=== PATIENT | male | born 1950 | race Caucasian/White ===

== ENCOUNTER 2016-04-28 17:09 | Emergency (ER) | payer MEDICARE, BC ==
--- OUTSIDE RECORDS SUMMARY | 2016-04-28 19:23 | XMS REPORT | Continuity of Care Document ---
:1950 Author Organization [facility] ([facility]) Address [address] [place] [address] Phone [phone] Care Team Providers Name Role Phone Honey Hoang Primary Care Provider [phone] Source Comments This disclosure is being made pursuant to the Care Everywhere program, applicable federal and state laws, and may not contain all informaitonavailable regarding this patient.[facility] ([facility]) Active Allergies and Adverse Reactions Allergen Noted Date Severity Reactions Comments Indomethacin Fatigue Penicillins Urticaria (Hives) Current Medications Prescription Sig. Disp. Refills Start Date End Date Status calcium carbonate take 1 Tab by mouth 90 Tab 5 06/08/2009 Active 650 mg (1,625 mg) 2 times daily with tablet meals. Indications: Osteoporosis Cholecalciferol, take 1 Cap by mouth 90 Cap 3 06/08/2009 Active Vitamin D3, 1,000 daily. Indications: unit Cap Osteoporosis ASCORBATE CALCIUM Take by mouth. Active (VITAMIN C PO) VITAMIN E ACETATE Take by mouth. Active (VITAMIN E PO) Ferrous Sulfate Take 1 Tab by mouth Active (IRON) 27 mg iron daily. Tab Multivitamin,Tx-Iron Take 1 Tab by mouth Active -Minerals (COMPLETE daily. MULTIVITAMIN) Tab metoPROLol tartrate Take 25 mg by mouth Active 25 mg tablet 2 times daily. TRIAMCINOLONE 0.1 % 11/20/2013 Active cream folic acid 1 mg Take 1 tablet (1 mg 100 tablet 4 02/10/2015 Active tablet total) by mouth daily alendronate 70 mg Take 1 tablet (70 12 tablet 4 04/14/2015 Active tablet mg total) by mouth every week. omega-3 fatty Take 1,000 mg by Active acids-vitamin E mouth daily. 1,000 mg capsule methotrexate 2.5 mg Take 8 tablets (20 96 tablet 1 03/03/2016 Active tablet mg total) by mouth every week. Active Problems Problem Noted Date Paroxysmal supraventricular tachycardia 06/24/2013 Encounter for long-term (current) use of other high-risk medications 2009 Osteoporosis 12/07/2008 Overview: DEXA 05/18 - L spine T score: -3.5. 25 [place] vitamin D=37. DEXA 12/20 - L spine T score -3.0 Irritable bowel syndrome 12/07/2008 History of appendectomy 12/07/2008 Mandibular fracture 12/07/2008 Overview: right mandibular fracture for malalignment and dental issues. Peyronie disease 12/07/2008 Overview: And ED Elevated prostate specific antigen (PSA) 12/07/2008 Overview: History of slightly elevated PSA of 4.75. prostate biopsy negative in 2004. Positive JUANCARLOS 12/07/2008 Overview: Transiently positive JUANCARLOS (1:640 homogenous pattern) outside lab 12/14. Repeat testing negative here 02/13. Negative SSA,B. 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 Skin plaques first developed in 1996. He has been treated by a director financial systems with topical steroid preparations and weekly tanning. Arthritis developed fall 2004. On MTX since 02/13. Dose decreased from 20mg orally per week to 17.5mg per week in 06/17 because of intermittently elevated LFTs. Segura view (-). 11/19 - MTX increased to 17.5 mg weekly (previously 15 mg). 06/20 - mtx increased to 20 mg weekly. Resolved Problems Problem Noted Date Resolved Date Other premature beats 05/08/2006 12/07/2008 Most Recent Encounters Date Type Specialty Providers Description 03/03/2016 Refill Med Rheumatology Irvin Solorio MD Dx: Psoriatic arthritis (Primary Dx) 02/18/2016 Telephone Med Allergy and Shawn Dill MD Immunology 01/28/2016 Office Visit Pathology Irvin Solorio MD Chief Comp: Patient Lab Services, Pfp Reported Reason For Visit 01/28/2016 Office Visit Med Rheumatology Default, Other Dx: Psoriatic Billg - Defo arthritis (Primary Irvin Solorio MD Dx) Shawn Dill MD 01/28/2016 [facility] Vandana Pandey Dx: Osteoporosis Encounter A, Immunizations Name Dates Previously Given Next Due Influenza 01/10/2016,12/08/2008 Influenza, quadrivalent PF 12/30/2013 Influenza, unspecified 02/19/2013,12/12/2011,01/11/2008,01/08/2007 Pneumococcal, unspecified 01/08/2007 Social History Tobacco Use Types Packs/Day Years Used Date Never Smoker Smokeless Tobacco: Never Used Comments:1 cig in 1969 Alcohol Use Drinks/Week oz/Week Comments No Last drink of ETOH 30y/o. 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 Oxygen Saturation - - Plan of Care Date Type Specialty Providers Description 07/21/2016 Appointment Med Rheumatology Default, Other Billg - Def[address] [place] [address] [phone] (Fax) Chief Comp: Patient Shawn Dill MD [address] [place] [address] [phone] (Fax) Reported Reason For Visit Health Maintenance Due Date Last Done Comments Hepatitis B Vaccine (1 of 3 1950 - Primary Series) Tdap Vaccine 1959 Lipid Disorder Screening 1966 Td Vaccine 1966 Colonoscopy 1998 Prostate Cancer Screening 1998 Zoster Vaccine 2008 Pneumococcal Vaccine (1 of 2 2013 - PCV13) HCV Screening Completed 02/09/2005 Influenza Vaccine: Seasonal Completed 01/10/2016, Additional history exists 12/30/2013, 02/19/2013 Results from Last 3 Months DXA SCAN (01/28/2016 4:08 PM) Narrative Vandana Pandey MD 01/28/20164:08 PM Dual-energy X-ray Absorptiometry, Hologic Discovery A, v13.6.0.2 Procedure Date: 01/28/2016 Ordering Physician:Alba Edmonds PA-C Dept: Medicine Specialty Clinic:Rheumatology Jose Terrazas is a 65 y.o. male -with osteoporosis and is on Alendronate, evaluate for interval change. On 01/28/2016,dual-energy x-ray absorptiometry was performed on the following location(s) with the following results: Left femoral qledR-rdmoj-5.3BMD 0.707 grams/cm2 Left total hip T-score-0.7BMD 0.855 grams/cm2 Lumbar spine (L3&L4) T-score-2.2BMD 0.862 grams/cm2 We were unable to calculate a rate of change for the lumbar spine. Since 12/27/2010 there has been a significant increase in bone density in the left total hip (+6.1%) Impression:Osteopenia [place] High, RTR Denotes significance based on site specific LSC (least significant change) of 0.02 grams/cm2 A T-score represents the number of standard deviations from a young adult mean and is used in menopausal/postmenopausal women and men ? 50 (WHO): ? -1.0 Normal -1.1 to -2.4 Low (Osteopenia) ? -2.5 Osteoporosis Reference Data for T-score: Lumbar Spine- female Hologic Hip- female NHANES III According to guidelines established by the International Society for Clinical Densitometry, a uniform (non-race adjusted) female normative database should be used for women and men of all ethnic groups. DIFFERENTIAL (01/28/2016 11:04 AM) Component Value Range % Neutrophils-Auto Diff 49.5 % Neutrophils-Auto Diff 2460 5325-8211 /MM3 % Lymphocytes-Auto Diff 35.9 % Lymphocytes-Auto Diff 7093 209-3902 /MM3 % Monocytes-Auto Diff 12.0 % Monocytes-Auto Diff 600 130-860 /MM3 % Eosinophils-Auto Diff 1.8 % Eosinophils-Auto Diff 90 40-390 /MM3 % Basophils 0.4 % Basophils-Auto Diff 20 10-136 /MM3 % Immature Granulocytes-Auto Diff 0.4 % Immature Granulocytes-Auto Diff 20 /MM3 Specimen Whole Blood CBC (COMPLETE BLOOD COUNT) (01/28/2016 11:04 AM) Component Value Range WBC Count 5.0 3.7-10.5 K/MM3 RBC Count 4.56 4.50-6.20 M/MM3 Hemoglobin 15.3 13.2-17.7 g/dL Hematocrit 46 40-52 % MCV (Mean Corpuscular Volume) 100(H) 82-99 FL MCH (Mean Corpuscular Hemoglobin) 34 25-35 PG MCHC (Mean Corpuscular Hemoglobin Concentration) 34 32-36 % Platelet Count 161 150-400 K/MM3 MPV (Mean Platelet Volume) 10.6 9.4-12.3 FL RBC Dist Width-STD 48.8(H) 35.1-43.9 FL RBC Distrib Width 13.4 9.0-14.5 % Nucleated RBC 0 /100 WBC Specimen Whole Blood CBC WITH DIFFERENTIAL (01/28/2016 11:04 AM) Specimen Whole Blood Narrative The following orders were created for panel order CBC WITH DIFFERENTIAL. Procedure Abnormality Status --------- ------ CBC (COMPLETE BLOOD COUNT)[[id number]] AbnormalFinal result DIFFERENTIAL[[id number]] Final result Please view results for these tests on the individual orders. HEPATIC FUNCTION PANEL (01/28/2016 11:04 AM) Component Value Range Albumin 4.3 3.4-4.8 g/dL ALP 54 40-129 U/L Bilirubin Total 0.5 <=1.2 mg/dL Bilirubin, Direct <0.2 0.0-0.2 mg/dL AST 22Comment: 0-40 U/L Adult reference ranges updated on 02/04/13 at 830am ALT 24Comment: 0-41 U/L The upper limit of normal for alanine aminotransferase (ALT) reference ranges for adults is controversial with some authorities recommending limit as low as 30 U/L for males and 19 U/L for females. Th ere is increased incidence of subclinical liver disease (e.g., early steatohepatitis) in patients with ALT values in the range of 31-41 U/L for males and 20-33 U/L for females. ALT values should alway s be interpreted in conjunction with clinical history, physical examination findings, and, if applicable, data from other diagnostic tests. Total Protein 6.6 6.0-8.0 g/dL Specimen Blood BASIC METABOLIC PANEL W/ CALCIUM (CHEM 8) (01/28/2016 11:04 AM) Component Value Range Sodium 140 135-145 mEq/L Potassium 4.6 3.5-5.0 mEq/L Chloride 101 95-107 mEq/L CO2 28 22-29 mEq/L Anion Gap 11 8-18 mEq/L BUN 20 10-20 mg/dL Creatinine 1.0Comment: 0.6-1.2 mg/dL Creatinine switched to enzymatic method on 07/19/2010.GFR equation switched to IDMS-traceable MDRD equation on 07/19/2010. Calculated GFR values are not valid in clinical settings where serum creatinine is changing. Glucose 70Comment: 65-99 mg/dL The Expert Committee on the Diagnosis and Classification of Diabetes has defined impaired fasting glucose as greater than or equal to 100 mg/dL but less than 126 mg/dL.(Diabetes Care 28 (Suppl 1)S41,2005) Calcium 9.3 8.5-10.5 mg/dL Calculated GFR 75 >60 mL/min/1.73 m2 Specimen Blood C-REACTIVE PROTEIN (01/28/2016 11:04 AM) Component Value Range CRP (C-Reactive Protein) <0.5 <=0.5 mg/dL Specimen Blood ERYTHROCYTE SEDIMENTATION RATE (01/28/2016 11:04 AM) Component Value Range ESR (Erythrocyte Sedimentation Rate) 2 0-15 mm/Hr Specimen Whole Blood
[2016-04-28 19:38] LABS: Hematocrit 44.9 % (42.0-52.0); Hemoglobin 15.3 gm/dL (13.5-18.0); Mean Cell Volume 98.2 fl (78-100); Mean Corpuscular Hemoglobin 33.5 pg (27-31); Mean Corpuscular Hgb Conc 34.1 g/dl (32-36); Mean Platelet Volume 10.5 fl (6.0-9.5); Neutrophil % 53.7 % (42-75.0); Platelet Count 152 K/mm3 (150-450); Red Blood Count 4.57 M/mm3 (4.7-6.0); Red Cell Distribution Width 13.9 % (11.5-14.0); White Blood Count 5.6 K/mm3 (4.0-10.5)
[2016-04-28 19:52] LABS: ALT 39 U/L (19-67); AST 19 U/L (0-48); Alkaline Phosphatase * 61 U/L (50-170); Anion Gap 11.2 mmol/L (6.8-13.8); Bilirubin, Total 0.3 mg/dL (0.0-1.1); Blood Urea Nitrogen 27 mg/dL (6-23); Ca. Corrected For Albumin 8.9 mg/dL (8.4-10.2); Calcium * 9.2 mg/dL (7.9-10.9); Carbon Dioxide 29.6 mmol/L (24-32.6); Chloride 106 mmol/L (97-106); Glucose * 93 mg/dL (70-110); Potassium 4.8 mmol/L (3.4-4.6); Sodium 142 mmol/L (132-142); Total Protein 7.5 gm/dL (6.2-8.2)
--- NOTE | 2016-04-28 19:52 | ERNOTE ---
Headache ER HPI - Narrative Date of Service: 04/28/16 - General Presenting Symptoms: headache Time Seen by Provider: 04/28/16 19:02 Source: patient, RN notes reviewed Exam Limitations: no limitations - Immun/Allergies/Home Medications Immunizations: IMMUNIZATION HX Immunizations Up to Date No History of Influenza Vaccine Yes Hx Pneumococcal Vaccination Yes Allergies/Adverse Reactions: Allergies indomethacin Adverse Reaction (Mild, Verified 01/01/13 12:27) DROWSINESS penicillin G Adverse Reaction (Mild, Verified 01/01/13 12:27) CHEST TURNS BEET RED Home Medications: HOME MEDICATIONS Alendronate Sodium [Fosamax] 70 mg PO Q7D 01/01/13 [Last Taken Unknown] Calcium Carbonate [Calcium] 1,000 mg PO DAILY 01/01/13 [Last Taken Unknown] Calcium Carbonate [Tums] 500 mg PO DAILY 01/01/13 [Last Taken Unknown] Cholecalciferol (Vitamin D3) [Vitamin D3] 400 unit PO DAILY 01/01/13 [Last Taken Unknown] Folic Acid 1 mg PO DAILY 01/01/13 [Last Taken Unknown] Methotrexate Sodium [Methotrexate] 4 tab PO Q7D 01/01/13 [Last Taken Unknown] Metoprolol Tartrate [Lopressor] 25 mg PO BID 01/01/13 [Last Taken Unknown] Naproxen [Naprosyn] 04/28/16 [Last Taken Unknown] - History of Present Illness Narrative: 66 y/o male ambulatory to the ED for evaluation of a headache that began 4 days ago. The pain is in the left occipital region and occurs intermittently, lasting only a few seconds at a time. He reports having 11 episodes of this today. He has tried taking Aleve and sinus medication without improvement. He denies any associated symptoms. He has never had problems with headaches in the past. Date (Duration): 04/24/16 Timing of Headache: abrupt Context Headache: Present: new onset Quality: Present: sharp Headache frequency: Present: no recent headache. Absent: similar to previous headache Exacerbated by:: Denies: light, noise, movement, position Prior Treament: Denies: recently seen Review of Systems - Review of Systems Constitutional: Absent: recent illness, fever, chills, fatigue, malaise EYE: Absent: eye pain, vision changes ENT: Absent: ear pain, nose congestion, nasal drainage, sore throat Respiratory: Absent: shortness of breath, cough Cardiology: Absent: chest pain, syncope Gastrointestinal/Abdominal: Absent: nausea, vomiting, abdominal pain Genitourinary: Present: no symptoms reported Musculoskeletal: Absent: muscle pain, neck pain Skin: Present: lesions. Absent: rash, lumps, change in color Neurological: Present: headache. Absent: dizziness/light-headedness Endocrine: Present: no symptoms reported Hematologic/Lymphatic: Absent: easy bruising, easy bleeding Psych: Absent: anxiety, depressed - Patient's Past Medical History Patient History - Medical: Other - Psoriatic arthritis Patient History - Cardiac/Respiratory: Arrhythmias - PSVT, Hypertension Patient History - Cancer: No Hx of Cancer Patient History - Surgical Procedures: Appendectomy, Colonoscopy Patient History - Other: None - Social History Living Situations: spouse Abuse History: No History of abuse Psych History: No pertinent hx Smoking Status: Never smoker Have you smoked in the past 12 months: No Do you dip or chew tobacco: No Patient requests Smoking Cessation Consult: No Initiate information on Smoking Cessation: No Alcohol Use: none Drug Use: none - Immunizations Immunizations Up to Date: No Hx Pneumococcal Vaccination: Yes History of Influenza Vaccine: Yes Physical Exam - Physical Exam General Appearance: Present: wd/wn, alert, no apparent distress Eye Exam: Normal inspection: bilateral, PERRL: bilateral, EOMI: bilateral Ears, Nose, Throat: Present: normal ENT inspection, hearing grossly normal, normal pharynx. Absent: abnormal TM (R), abnormal TM (L), sinus pain/drainage Neck: Present: normal inspection, nontender, supple, full range of motion. Absent: lymphadenopathy (R), lymphadenopathy (L) Respiratory: Present: no respiratory distress, normal breath sounds, no accessory muscle use, lungs clear Cardiovascular/Chest: Present: regular rate, rhythm, no murmur Extremity Exam: Present: normal inspection, no edema, normal range of motion Neurological Exam: Present: alert, oriented, normal mood/affect, no motor/ sensory deficits Skin Exam: Present: normal color, warm/dry ED Progress - Results and Orders Patient's Lab Results:: I have reviewed the patient's lab results. - Vital Signs Patient's Vital Signs:: I have reviewed the patient's vital signs. Vital Signs: Vital Signs 04/28/16 17:37 Temperature 36.7 C Pulse Rate 75 Respiratory 14 Rate Blood Pressure 125/76 O2 Sat by Pulse 98 Oximetry - CT/Ultrasound CT/Ultrasound Narrative: No acute intracranial abnormalities noted on noncontrast head CT - Progress/Reassessment Chief Complaint: Headache Progress:: Unchanged Plan - Plan Plan: Labs and xray unremarkable. Discussed possibility that his pain may be a prodromal symptoms of shingles. To f/u with PCP for further eval if pain continues or return here if worse. Departure Clinical Impression: Occipital headache - Departure Disposition: Home Follow Up Needed Condition: Stable Additional Instructions: Contact internal medicine for follow up if symptoms continue through the weekend Return if symptoms worsen Seek treatment if you develop a rash Referrals: Honey Hoang MD [Primary Care Provider] -
[2016-04-28 23:06] VITALS: BP 123/74
== END 2016-04-28 21:00 | disposition home or self-care (01) ==
LOC: ER 17:09
DX: R51 Headache (principal)

== ENCOUNTER 2020-08-17 10:17 | Inpatient (IN) ==
[2020-08-17 10:54] LABS: Hemoglobin 13.6 gm/dL (13.5-18.0); Mean Cell Volume 98.5 fl (78-100); Mean Corpuscular Hemoglobin 33.5 pg (27-31); Mean Platelet Volume 10.2 fl (8-11.3); Neutrophil # 6.8 K/mm3 (1.3-6.0); Neutrophil % 89.1 % (42-75.0); Platelet Count 209 K/mm3 (150-450); Red Blood Count 4.06 M/mm3 (4.7-6.0); Red Cell Distribution Width 12.9 % (11.5-14.0); White Blood Count 7.6 K/mm3 (4.0-10.5)
[2020-08-17 11:13] LABS: ALT 45 U/L (19-67); AST 34 U/L (0-48); Albumin * 2.5 gm/dl (3.4-5.0); Alkaline Phosphatase * 82 U/L (50-170); Anion Gap 16.7 mmol/L (6.8-13.8); BNP * 586 pg/mL (5-350); BUN/Creatinine Ratio 24.3 (9.0-21.6); Bilirubin, Total 0.7 mg/dL (0.0-1.1); Blood Urea Nitrogen 26 mg/dL (6-23); Ca. Corrected For Albumin 9.4 mg/dL (8.4-10.2); Calcium * 8.5 mg/dL (7.9-10.9); Carbon Dioxide 26.5 mmol/L (24-32.6); Chloride 104 mmol/L (97-106); Glucose * 107 mg/dL (70-110); Potassium 4.2 mmol/L (3.4-4.6); Sodium 143 mmol/L (132-142); Total Protein 7.5 gm/dL (6.2-8.2); Troponin I Less than 0.017 ng/mL (0.00-0.10)
[2020-08-17] MEDS ORDERED: DEXAMETHASONE SODIUM PHOSP/PF 10 MG/ML VIAL IV ONE (11:17)
--- NOTE | 2020-08-17 11:17 | ERNOTE ---
Dyspnea - Date Date of Service: 08/17/20 - General Presenting Symptoms: shortness of breath Time Seen by Provider: 08/17/20 10:26 Source: patient Exam Limitations: clinical condition - Immun/Allergies/Home Medications Immunizations: IMMUNIZATION HX Immunizations Up to Date Yes History of Influenza Vaccine Yes Hx Pneumococcal Vaccination Yes Allergies/Adverse Reactions: Allergies indomethacin Adverse Reaction (Mild, Verified 07/01/20 10:28) DROWSINESS penicillin G Adverse Reaction (Mild, Verified 07/01/20 10:28) CHEST TURNS BEET RED Home Medications: HOME MEDICATIONS calcium carbonate 200 mg calcium (500 mg) chewable tablet 500 mg PO DAILY #1 tab 10/11/17 [Last Taken Unknown] methotrexate sodium 2.5 mg tablet 10 mg PO Q7D tab 10/11/17 [Last Taken 12/22/17] Ascorbic Acid [Vitamin C] 500 mg PO DAILY 12/28/17 [Last Taken Unknown] Cholecalciferol (Vitamin D3) [Vitamin D3] 1,000 unit PO DAILY 12/28/17 [Last Taken Unknown] Cyanocobalamin (Vitamin B-12) [Vitamin B-12] 1 tab PO DAILY 12/28/17 [Last Taken Unknown] Folic Acid 1 mg PO BID 12/28/17 [Last Taken 12/27/17] Multivitamin [One Daily Multivitamin] 1 ea PO DAILY 12/28/17 [Last Taken Unknown] [place]-3S/Dha/Epa/Fish Oil [Fish Oil 1,200 mg Softgel] 1 ea PO DAILY 12/28/17 [Last Taken Unknown] Tamsulosin HCl [Flomax] 0.4 mg PO HS 12/28/17 [Last Taken 12/27/17] Vitamin E 400 unit PO DAILY 12/28/17 [Last Taken Unknown] finasteride 5 mg tablet 5 mg PO DAILY 11/18/19 [Last Taken Unknown] infliximab 100 mg intravenous solution IV Q8W ea 11/18/19 [Last Taken Unknown] potassium chloride 20 mEq tablet,extended release(part/cryst) 20 meq PO DAILY 11/18/19 [Last Taken Unknown] metoprolol tartrate 25 mg tablet 25 mg PO BID #180 tab 03/08/20 [Last Taken Unknown] ropinirole 0.5 mg tablet 0.5 mg PO HS #90 tab 06/07/20 [Last Taken Unknown] ropinirole 1 mg tablet See Rx Instructions .ROUTE .COMPLEX #90 unknown measurement unit code: not specified 06/07/20 [Last Taken Unknown] - History of Present Illness Narrative: Patient presents to the walk in clinic for hypoxia. He reportedly became ill August 06. his had an illness, more of a vomiting/diarrhea illness. He developed cough and progressive SOB. No clear fever. SOB worse with exertion. Sats mid 80s on arrival to clinic, placed on oxygen and brought to the ED. No specific chest pain. No abdominal pain. Worse with exertion, better with rest. 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 Denies: fever/chills, leg/calf pain Prior Treatment: Denies: recently seen Review of Systems - Review of Systems Constitutional: Absent: fever EYE: Present: no symptoms reported ENT: Present: no symptoms reported Respiratory: Present: shortness of breath Cardiology: Absent: syncope Gastrointestinal/Abdominal: Absent: abdominal pain All Other Systems: All systems neg except as marked Medical History (Last Reviewed 08/17/20 @ 11:14 by Wale Montoya MD) Erectile dysfunction Onset Date: Unknown IBS (irritable bowel syndrome) Onset Date: Unknown Lives with spouse Mandibular fracture, closed Onset Date: Unknown Rt mandibular fracture for malalignment and dental issues Non-smoker Osteoarthritis Onset Date: Unknown Psoriatic osteoarthritis. On Remicade. Osteoporosis Onset Date: 05/2008 DEXA 05/18 L-Spine T score -3.5 25 [place] Vitamin D=37. DEXA 12/20 L-Spine T score -3.0 PSVT (paroxysmal supraventricular tachycardia) Onset Date: Unknown Palpitations Onset Date: 2006 Had a treadmill that was nml Peyronie's disease Onset Date: Unknown Psoriasis Onset Date: Unknown Surgical History: Surgical History (Last Reviewed 08/17/20 @ 11:14 by Wale Montoya MD) History of mandibular surgery Onset Date: 1980 For overbite Hx of appendectomy Onset Date: 1978 Hx of colonoscopy Onset Date: 1997 [facility] - hyperplastic polyp [place] teeth extracted Onset Date: Unknown Family History: Family History (Last Reviewed 08/17/20 @ 11:14 by Wale Montoya MD) Brother Alive and well Father , Age 85 Alzheimers disease Cancer Bladder cancer that spread Grandfather Cancer Lung Heart disease Grandmother Heart disease Grandmother Heart disease Lost use of legs Mother , Age 29 Rheumatic fever with cardiac involvement Rheumatic fever failed her heart on operating table. 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 Tobacco: Smoking Status: Never smoker Alcohol: alcohol intake: former Substance Use: substance use type: does not use Dietary Habits: caffeine: Yes caffeine comment: Current some day - rarely Physical Exam - Physical Exam General Appearance: Present: alert, other - does not appear to feel well, now with oxygen mild tachypnea Head Exam: Present: normal inspection, no evidence of injury Eye Exam: Normal inspection: bilateral, PERRL: bilateral Ears, Nose, Throat: Present: normal ENT inspection Neck: Present: normal inspection Respiratory: Present: lungs clear, respiratory distress, other - diminshed bilaterally Cardiovascular/Chest: Present: normal peripheral pulses, tachycardia Gastrointestinal/Abdominal: Present: normal bowel sounds, nontender, nondistended, soft Back Exam: Present: normal range of motion Extremity Exam: Present: no edema Neurological Exam: Present: alert, no motor/sensory deficits Skin Exam: Present: normal color, warm/dry Progress - Results and Orders Patient's Lab Results:: I have reviewed the patient's lab results. - Vital Signs Patient's Vital Signs:: I have reviewed the patient's vital signs. Vital Signs: Vital Signs 08/17/20 10:21 Temperature 36.4 C Pulse Rate 110 H Respiratory Rate 39 H Blood Pressure 144/86 O2 Sat by Pulse Oximetry 92 L - EKG EKG #1 EKG read: Interp. by me EKG Comments: Sinus tachycardia rate 107. Non-specific ST/T wave changes, no STEMI noted. - X-Ray X-Ray #1 X-Ray: chest Interpretation: Interp. by me X-ray Comments: I personally reviewed portable CXR image as well as official radiology report. - Progress/Reassessment Chief Complaint: Dyspnea Progress Note-Subjective: 08/17/20 12:55 Patient has bilateral COVID pneumonia on CXR> He has hypoxia now controlled with supplemental oxygen. PCT wnl so no indication for antibiotics. Since he will need admission IV Decadron 10mg given. As we have seen with COVID patients in this pandemic his d-dimer is elevated so Full dose Lovenox given here in the ED. I spoke with Dr Hoang who will admit and patient will be taken to the Covid unit for hospitalization. Departure Clinical Impression: Pneumonia due to COVID-19 virus, Hypoxia - Departure Disposition: Still a patient Condition: Fair Referrals: Honey Hoang MD [Primary Care Provider] -
[2020-08-17] MEDS ORDERED: ENOXAPARIN SODIUM 80 MG/0.8 ML DISP.SYRIN SC ONE (12:52)
[2020-08-17 15:58] LABS: LD 572 U/L (85-227)
[2020-08-17 16:00] LABS: Ferritin 1388 ng/mL (26-388)
--- NOTE | 2020-08-17 17:02 | HP ---
Chief Complaint - Chief Complaint Date of Service: 08/17/20 Time of Service: 16:24 Chief Complaint: shortness of breath History of Present Illness: Jose Terrazas is a 70-year-old white male with past medical history significant for psoriatic arthropathy, restless leg syndrome, hyperlipidemia, impaired fasting glucose, BPH who was admitted on 08/17/2020 for shortness of breath. 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 He kept himself at home and took [id number] medications for his cough and took Tylenol for his fever and chills. He was due to the get his infliximab but his airconditioning drafting officer told him to go to the hospital to be evaluated. He was seen in the walk-in clinic/respiratory clinic and was found to be hypoxic saturating in the mid 80s. He was sent then to the emergency room where the chest x-ray showed mixed interstitial and airspace opacities bilaterally. His white blood cell count was normal, neutrophils of 89%, creatinine of 1.07 with a GFR of 72, liver function test within normal limits, BNP of 586, procalcitonin of 0.07, Covid positive. His D-dimer was elevated at over 10. CT scan was down. CT angiogram was not done. He was admitted for Covid pneumonia and started on 3 L of nasal cannula saturating around 96 to 97% in the emergency room. He is currently on 1 L and saturating above 93%. He got a dose of dexamethasone and got his first therapeutic dose of Lovenox.. 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 Osteoporosis Onset Date: 05/2008 DEXA 05/18 L-Spine T score -3.5 25 [place] Vitamin D=37. DEXA 12/20 L-Spine T score -3.0 PSVT (paroxysmal supraventricular tachycardia) Onset Date: Unknown Palpitations Onset Date: 2006 Had a treadmill that was nml Peyronie's disease Onset Date: Unknown Psoriasis Onset Date: Unknown Surgical History: Surgical History (Last Reviewed 08/17/20 @ 14:29 by Gwyn Luis RN) History of mandibular surgery Onset Date: 1980 For overbite Hx of appendectomy Onset Date: 1978 Hx of colonoscopy Onset Date: [address] [facility] - hyperplastic polyp [place] teeth extracted Onset Date: Unknown Family History: Family History (Last Reviewed 08/17/20 @ 14:29 by Gwyn Luis RN) Brother Alive and well Father , Age 85 Alzheimers disease Cancer Bladder cancer that spread Grandfather Cancer Lung Heart disease Grandmother Heart disease Grandmother Heart disease Lost use of legs Mother , Age 29 Rheumatic fever with cardiac involvement Rheumatic fever failed her heart on operating table. 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 Absent: Orthopnea, Wheezing Cardiac: Absent: Chest Pain, Edema, Palpitations Abdominal: Absent: Nausea, Vomiting, Hematemesis, Abdominal Pain Genitourinary: Absent: Urgency, Frequency Musculoskeletal: Present: Joint Pain Neurological: Absent: Headache Skin: Absent: Lesions, Rash Misc: All systems neg except as marked Immunizations: IMMUNIZATION HX Immunizations Up to Date Yes History of Influenza Vaccine Yes Hx Pneumococcal Vaccination Yes Allergies/Adverse Reactions: Allergies Allergy/AdvReac Type Severity Reaction Status Date / Time indomethacin AdvReac Mild DROWSINESS Verified 08/17/20 14:30 penicillin G AdvReac Mild CHEST Verified 08/17/20 14:30 TURNS BEET RED Home Medications: HOME MEDICATIONS methotrexate sodium 2.5 mg tablet 20 mg PO Q7D tab 10/11/17 [Last Taken 12/22/17] Ascorbic Acid [Vitamin C] 500 mg PO DAILY 12/28/17 [Last Taken Unknown] Cholecalciferol (Vitamin D3) [Vitamin D3] 1,000 unit PO DAILY 12/28/17 [Last Taken Unknown] Cyanocobalamin (Vitamin B-12) [Vitamin B-12] 1 tab PO DAILY 12/28/17 [Last Taken Unknown] Folic Acid 2 mg PO DAILY 12/28/17 [Last Taken 12/27/17] Multivitamin [One Daily Multivitamin] 1 ea PO DAILY 12/28/17 [Last Taken Unknown] [place]-3S/Dha/Epa/Fish Oil [Fish Oil 1,200 mg Softgel] 1 ea PO DAILY 12/28/17 [Last Taken Unknown] Tamsulosin HCl [Flomax] 0.4 mg PO HS 12/28/17 [Last Taken 12/27/17] Vitamin E 400 unit PO DAILY 12/28/17 [Last Taken Unknown] finasteride 5 mg tablet 5 mg PO DAILY 11/18/19 [Last Taken Unknown] infliximab 100 mg intravenous solution IV Q8W ea 11/18/19 [Last Taken Unknown] potassium chloride 20 mEq tablet,extended release(part/cryst) 20 meq PO DAILY 11/18/19 [Last Taken Unknown] metoprolol tartrate 25 mg tablet 25 mg PO BID #180 tab 03/08/20 [Last Taken Unknown] ropinirole 0.5 mg tablet 0.5 mg PO HS #90 tab 06/07/20 [Last Taken Unknown] ropinirole 1 mg tablet See Rx Instructions .ROUTE .COMPLEX #90 unknown measurement unit code: not specified 06/07/20 [Last Taken Unknown] Calcium Carbonate [Tums] 500 mg PO BID 08/17/20 [Last Taken Unknown] Exam - Exam Vital Signs: Vital Signs - Last Taken Temp 37 C 08/17/20 14:39 Pulse 89 08/17/20 14:39 Resp 24 H 08/17/20 14:39 BP 132/68 08/17/20 14:39 Pulse Ox 98 08/17/20 15:36 Constitutional: Present: Alert, Oriented x3, Cooperative ENT Exam: Present: hearing grossly normal Eye Exam: bilateral eye: normal inspection, PERRL, EOMI Neck: Present: supple. Absent: lymphadenopathy (R), lymphadenopathy (L) Respiratory: Present: decreased breath sounds, crackles, No wheezing Cardiovascular/Chest: Present: regular rate, rhythm, no JVD, no murmur Abdomen: Present: Normal bowel sounds, soft, nontender, nondistended Extremity: Present: no calf tenderness. Absent: lower extremity edema Diagnostic Studies: Abnormal Lab Results 08/17/20 08/17/20 08/17/20 Range/Units 10:40 10:45 10:45 RBC 4.06 L (4.7-6.0) M/mm3 Hct 40.0 L (42.0-52.0) % MCH 33.5 H (27-31) pg Immature Gran % (Auto) 0.90 H (0.001-0.429) % Immature Gran # (Auto) 0.07 H (0.000-0.0310) K/mm3 Neutrophils % 89.1 H (42-75.0) % Lymphocytes % 4.5 L (20-51) % Neutrophils # 6.8 H (1.3-6.0) K/mm3 Lymphocytes # 0.34 L (1.5-3.5) k/mm3 ESR (0-10) mm/hr D-Dimer (0.19-0.49) ugFEU/mL pCO2 30.0 L (35.0-48.0) mmHg pO2 63.5 L (83.0-108.0) mmHg ABG pH 7.50 H (7.35-7.45) Sodium 143 H (132-142) mmol/L Plasma Sodium 143 H (130-142) mmol/L Anion Gap 16.7 H (6.8-13.8) mmol/L BUN 26 H (6-23) mg/dL BUN/Creatinine Ratio 24.3 H (9.0-21.6) Ferritin (26-388) ng/mL Lactate Dehydrogenase (85-227) U/L C-Reactive Prot, Quant (0.0-0.9) mg/dL B-Natriuretic Peptide 586 H (5-350) pg/mL Albumin 2.5 L (3.4-5.0) gm/dl SARS-CoV-2 (PCR) (NotDetected) 08/17/20 08/17/20 08/17/20 Range/Units 10:45 10:45 10:45 RBC (4.7-6.0) M/mm3 Hct (42.0-52.0) % MCH (27-31) pg Immature Gran % (Auto) (0.001-0.429) % Immature Gran # (Auto) (0.000-0.0310) K/mm3 Neutrophils % (42-75.0) % Lymphocytes % (20-51) % Neutrophils # (1.3-6.0) K/mm3 Lymphocytes # (1.5-3.5) k/mm3 ESR 74 H (0-10) mm/hr D-Dimer Greater than 10.00 H (0.19-0.49) ugFEU/mL pCO2 (35.0-48.0) mmHg pO2 (83.0-108.0) mmHg ABG pH (7.35-7.45) Sodium (132-142) mmol/L Plasma Sodium (130-142) mmol/L Anion Gap (6.8-13.8) mmol/L BUN (6-23) mg/dL BUN/Creatinine Ratio (9.0-21.6) Ferritin (26-388) ng/mL Lactate Dehydrogenase (85-227) U/L C-Reactive Prot, Quant 17.0 H (0.0-0.9) mg/dL B-Natriuretic Peptide (5-350) pg/mL Albumin (3.4-5.0) gm/dl SARS-CoV-2 (PCR) (NotDetected) 08/17/20 08/17/20 Range/Units 10:45 11:28 RBC (4.7-6.0) M/mm3 Hct (42.0-52.0) % MCH (27-31) pg Immature Gran % (Auto) (0.001-0.429) % Immature Gran # (Auto) (0.000-0.0310) K/mm3 Neutrophils % (42-75.0) % Lymphocytes % (20-51) % Neutrophils # (1.3-6.0) K/mm3 Lymphocytes # (1.5-3.5) k/mm3 ESR (0-10) mm/hr D-Dimer (0.19-0.49) ugFEU/mL pCO2 (35.0-48.0) mmHg pO2 (83.0-108.0) mmHg ABG pH (7.35-7.45) Sodium (132-142) mmol/L Plasma Sodium (130-142) mmol/L Anion Gap (6.8-13.8) mmol/L BUN (6-23) mg/dL BUN/Creatinine Ratio (9.0-21.6) Ferritin 1388 H (26-388) ng/mL Lactate Dehydrogenase 572 H (85-227) U/L C-Reactive Prot, Quant (0.0-0.9) mg/dL B-Natriuretic Peptide (5-350) pg/mL Albumin (3.4-5.0) gm/dl SARS-CoV-2 (PCR) Detected H (NotDetected) Laboratory Results WBC 7.6 K/mm3 (4.0-10.5) 08/17/20 10:45 RBC 4.06 M/mm3 (4.7-6.0) L 08/17/20 10:45 Hgb 13.6 gm/dL (13.5-18.0) 08/17/20 10:45 Hct 40.0 % (42.0-52.0) L 08/17/20 10:45 MCV 98.5 fl (78-100) 08/17/20 10:45 MCH 33.5 pg (27-31) H 08/17/20 10:45 MCHC 34.0 g/dl (32-36) 08/17/20 10:45 RDW 12.9 % (11.5-14.0) 08/17/20 10:45 Plt Count 209 K/mm3 (150-450) 08/17/20 10:45 MPV 10.2 fl (8-11.3) 08/17/20 10:45 Immature Gran % (Auto) 0.90 % (0.001-0.429) H 08/17/20 10:45 Immature Gran # (Auto) 0.07 K/mm3 (0.000-0.0310) H 08/17/20 10:45 Neutrophils % 89.1 % (42-75.0) H 08/17/20 10:45 Lymphocytes % 4.5 % (20-51) L 08/17/20 10:45 Monocytes % 5.1 % (0.0-9) 08/17/20 10:45 Eosinophils % 0.3 % (0.0-3.0) 08/17/20 10:45 Basophils % 0.1 % (0.0-1.0) 08/17/20 10:45 Nucleated RBC % 0.0 k/mm3 (0-1) 08/17/20 10:45 Neutrophils # 6.8 K/mm3 (1.3-6.0) H 08/17/20 10:45 Lymphocytes # 0.34 k/mm3 (1.5-3.5) L 08/17/20 10:45 Monocytes # 0.4 k/mm3 (0.0-1.0) 08/17/20 10:45 Eosinophils # 0.0 k/mm3 (0.0-0.7) 08/17/20 10:45 Absolute Basophils 0.0 k/mm3 (0.0-0.1) 08/17/20 10:45 ESR 74 mm/hr (0-10) H 08/17/20 10:45 D-Dimer Greater than 10.00 ugFEU/mL (0.19-0.49) H 08/17/20 10:45 pCO2 30.0 mmHg (35.0-48.0) L 08/17/20 10:40 pO2 63.5 mmHg (83.0-108.0) L 08/17/20 10:40 HCO3 22.9 mmol/L (21.0-28.0) 08/17/20 10:40 Total CO2 23.8 mmol/L (19.0-24.0) 08/17/20 10:40 Base Excess 0.7 mmol/L (-2.0-3.0) 08/17/20 10:40 ABG pH 7.50 (7.35-7.45) H 08/17/20 10:40 ABG O2 Sat (Measured) 94.3 % (94.0-98.0) 08/17/20 10:40 Sodium 143 mmol/L (132-142) H 08/17/20 10:45 Plasma Sodium 143 mmol/L (130-142) H 08/17/20 10:45 Potassium 4.2 mmol/L (3.4-4.6) 08/17/20 10:45 Chloride 104 mmol/L (97-106) 08/17/20 10:45 Carbon Dioxide 26.5 mmol/L (24-32.6) 08/17/20 10:45 Anion Gap 16.7 mmol/L (6.8-13.8) H 08/17/20 10:45 BUN 26 mg/dL (6-23) H 08/17/20 10:45 Creatinine 1.07 mg/dL (0.4-1.4) 08/17/20 10:45 Est GFR (Non-Af Amer) 72 mL/min (60-130) 08/17/20 10:45 BUN/Creatinine Ratio 24.3 (9.0-21.6) H 08/17/20 10:45 Random Glucose 107 mg/dL (70-110) 08/17/20 10:45 Calcium 8.5 mg/dL (7.9-10.9) 08/17/20 10:45 Calcium Adj for Albumin 9.4 mg/dL (8.4-10.2) 08/17/20 10:45 Ferritin 1388 ng/mL (26-388) H 08/17/20 10:45 Total Bilirubin 0.7 mg/dL (0.0-1.1) 08/17/20 10:45 AST 34 U/L (0-48) 08/17/20 10:45 ALT 45 U/L (19-67) 08/17/20 10:45 Alkaline Phosphatase 82 U/L (50-170) 08/17/20 10:45 Lactate Dehydrogenase 572 U/L (85-227) H 08/17/20 10:45 Troponin I Less than 0.017 ng/mL (0.00-0.10) 08/17/20 10:45 C-Reactive Prot, Quant 17.0 mg/dL (0.0-0.9) H 08/17/20 10:45 B-Natriuretic Peptide 586 pg/mL (5-350) H 08/17/20 10:45 Total Protein 7.5 gm/dL (6.2-8.2) 08/17/20 10:45 Albumin 2.5 gm/dl (3.4-5.0) L 08/17/20 10:45 Procalcitonin 0.07 ng/mL (0.05-0.50) 08/17/20 10:45 SARS-CoV-2 (PCR) Detected (NotDetected) H 08/17/20 11:28 Assessment/Plan - Narrative Narrative: Jose was admitted with acute respiratory failure hypoxemic type secondary to pneumonia due to COVID-19. Patient does not qualify anymore for monoclonal antibodies or remdesivir. We will continue him on dexamethasone 6 mg IV daily and consider Tocilizumab if his CRP goes way up high 0ver 75 and patient shows no improvement. He is however comfortable now at 1 L low-flow nasal cannula and will continue with his current oxygenation to keep his oxygen saturation above 93%. We will hold his methotrexate and his infliximab and continue with his other home medications. He was told that it is better for him to do daytime prone position or sleep on a prone position at night for at least 10-12 hours a day as it will help with his oxygenation. He does have a history of obstructive sleep apnea but is not on any CPAP or BiPAP. We will try to look for his sleep study results and see what has been recommended . We might start CPAP at night to increase recruitment and prevent atelectasis especially if he is not able to sleep in the prone position. We will keep him on low-flow nasal cannula in the daytime. I will also start him on melatonin 5 to 10 mg p.o. nightly. We will continue him on the therapeutic Lovenox treatment and will likely get a CT an giogram following PE protocol tomorrow. Although we expect his D-dimer to be high with COVID-19 we will need to rule out pulmonary embolism as dose and duration of his anticoagulation will depend on it. We will add ferritin, LDH, ESR, CRP to his blood work. We will not start him on antibiotics as his WBC and procalcitonin are normal. - Assessment/Plan (1) Acute respiratory failure with hypoxemia Assessment: Due to Covid pneumonia Problem: Acute (2) Acute respiratory alkalosis Assessment: Due to Covid pneumonia rule out pulmonary embolism Problem: Acute (3) Pneumonia due to COVID-19 virus Problem: Acute (4) Elevated d-dimer Assessment: COVID-19 pneumonia versus pulmonary embolism Problem: Acute (5) IFG (impaired fasting glucose) Problem: Chronic (6) RLS (restless legs syndrome) Problem: Chronic (7) Psoriatic arthropathy Problem: Chronic (8) JEANETTE (obstructive sleep apnea) Problem: Chronic (9) Hyperlipidemia Problem: Chronic Qualifiers:
[2020-08-17] MEDS: ENOXAPARIN SODIUM 80 MG/0.8 ML DISP.SYRIN SC SCH (18:00)
[2020-08-17] MEDS: TAMSULOSIN HCL 0.4 MG CAP.SR.24H PO SCH (20:03)
[2020-08-17] MEDS: rOPINIRole HCL 1 MG TABLET PO SCH (20:04)
[2020-08-17] MEDS: MELATONIN 3,000 MCG TABLET PO SCH (20:04)
[2020-08-17] MEDS: rOPINIRole HCL 0.5 MG TABLET PO SCH (20:05)
[2020-08-17] MEDS: CALCIUM CARBONATE 500 MG TAB.CHEW PO SCH (20:06)
[2020-08-17] MEDS: METOPROLOL TARTRATE 25 MG TABLET PO SCH (21:35)
[2020-08-18] MEDS: ENOXAPARIN SODIUM 80 MG/0.8 ML DISP.SYRIN SC SCH (05:38)
[2020-08-18] MEDS: METOPROLOL TARTRATE 25 MG TABLET PO SCH ×2 (08:00→21:03)
[2020-08-18] MEDS ORDERED: CYANOCOBALAMIN 1,000 MCG TABLET PO SCH (09:00)
--- NOTE | 2020-08-18 09:40 | PN ---
Subjective - Date and Time Seen Date: 08/18/20 Subjective Narrative: patient says that he is a mouth breather. afebrile. was bradyacrdic per nurse Objective - Review of Systems Generalized/Overall Review: Reports: Weakness. Denies: Chills, Fever EENTM: Denies: Blurred Vision Respiratory: Reports: Cough, Shortness of Breath. Denies: Wheezing Cardiac: Denies: Chest Pain, Edema, Palpitations Abdominal: Denies: Nausea, Vomiting, Abdominal Pain Genitourinary Symptoms: Denies: Urgency, Frequency Neurological: Denies: Headache Skin: Denies: Lesions, Rash Misc: All systems neg except as marked - Vitals Vitals: Last Vital Signs Temp 36.6 C 08/18/20 08:50 Pulse 67 08/18/20 08:50 Resp 18 08/18/20 08:50 BP 113/70 08/18/20 08:50 Pulse Ox 96 08/18/20 08:50 - Abnormal Lab Findings Abnormal Lab Findings: Abnormal Lab Results 08/17/20 08/17/20 08/17/20 Range/Units 10:40 10:45 10:45 RBC 4.06 L (4.7-6.0) M/mm3 Hct 40.0 L (42.0-52.0) % MCH 33.5 H (27-31) pg Immature Gran % (Auto) 0.90 H (0.001-0.429) % Immature Gran # (Auto) 0.07 H (0.000-0.0310) K/mm3 Neutrophils % 89.1 H (42-75.0) % Lymphocytes % 4.5 L (20-51) % Neutrophils # 6.8 H (1.3-6.0) K/mm3 Lymphocytes # 0.34 L (1.5-3.5) k/mm3 ESR (0-10) mm/hr D-Dimer (0.19-0.49) ugFEU/mL pCO2 30.0 L (35.0-48.0) mmHg pO2 63.5 L (83.0-108.0) mmHg ABG pH 7.50 H (7.35-7.45) Sodium 143 H (132-142) mmol/L Plasma Sodium 143 H (130-142) mmol/L Anion Gap 16.7 H (6.8-13.8) mmol/L BUN 26 H (6-23) mg/dL BUN/Creatinine Ratio 24.3 H (9.0-21.6) Ferritin (26-388) ng/mL Lactate Dehydrogenase (85-227) U/L C-Reactive Prot, Quant (0.0-0.9) mg/dL B-Natriuretic Peptide 586 H (5-350) pg/mL Albumin 2.5 L (3.4-5.0) gm/dl SARS-CoV-2 (PCR) (NotDetected) 08/17/20 08/17/20 08/17/20 Range/Units 10:45 10:45 10:45 RBC (4.7-6.0) M/mm3 Hct (42.0-52.0) % MCH (27-31) pg Immature Gran % (Auto) (0.001-0.429) % Immature Gran # (Auto) (0.000-0.0310) K/mm3 Neutrophils % (42-75.0) % Lymphocytes % (20-51) % Neutrophils # (1.3-6.0) K/mm3 Lymphocytes # (1.5-3.5) k/mm3 ESR 74 H (0-10) mm/hr D-Dimer Greater than 10.00 H (0.19-0.49) ugFEU/mL pCO2 (35.0-48.0) mmHg pO2 (83.0-108.0) mmHg ABG pH (7.35-7.45) Sodium (132-142) mmol/L Plasma Sodium (130-142) mmol/L Anion Gap (6.8-13.8) mmol/L BUN (6-23) mg/dL BUN/Creatinine Ratio (9.0-21.6) Ferritin (26-388) ng/mL Lactate Dehydrogenase (85-227) U/L C-Reactive Prot, Quant 17.0 H (0.0-0.9) mg/dL B-Natriuretic Peptide (5-350) pg/mL Albumin (3.4-5.0) gm/dl SARS-CoV-2 (PCR) (NotDetected) 08/17/20 08/17/20 Range/Units 10:45 11:28 RBC (4.7-6.0) M/mm3 Hct (42.0-52.0) % MCH (27-31) pg Immature Gran % (Auto) (0.001-0.429) % Immature Gran # (Auto) (0.000-0.0310) K/mm3 Neutrophils % (42-75.0) % Lymphocytes % (20-51) % Neutrophils # (1.3-6.0) K/mm3 Lymphocytes # (1.5-3.5) k/mm3 ESR (0-10) mm/hr D-Dimer (0.19-0.49) ugFEU/mL pCO2 (35.0-48.0) mmHg pO2 (83.0-108.0) mmHg ABG pH (7.35-7.45) Sodium (132-142) mmol/L Plasma Sodium (130-142) mmol/L Anion Gap (6.8-13.8) mmol/L BUN (6-23) mg/dL BUN/Creatinine Ratio (9.0-21.6) Ferritin 1388 H (26-388) ng/mL Lactate Dehydrogenase 572 H (85-227) U/L C-Reactive Prot, Quant (0.0-0.9) mg/dL B-Natriuretic Peptide (5-350) pg/mL Albumin (3.4-5.0) gm/dl SARS-CoV-2 (PCR) Detected H (NotDetected) - Exam Constitutional: Present: Alert, Oriented x3, Cooperative ENT Exam: Present: hearing grossly normal Neck: Present: supple. Absent: lymphadenopathy (R), lymphadenopathy (L) Respiratory: Present: decreased breath sounds, crackles, No wheezing Cardiovascular/Chest: Present: regular rate, rhythm, no JVD, no murmur Abdomen: Present: Normal bowel sounds, soft, nontender, nondistended Extremity: Present: no calf tenderness. Absent: lower extremity edema Assessment/Plan Plan Narrative: Jose was admitted yesterday for acute respiratory failure with hypoxemia due to COVID-19 pneumonia. He has been saturating 92 to 97% with 1 L of nasal cannula. We can use a simple mask with exhalation port to cover both nose and mouth at night when he sleeps and nasal cannula during the daytime as he is conscious enough to close his mouth. Titrate oxygen to keep oxygen saturation 93% and above. We will hold his metoprolol in the morning today. Continue with present management and other current medications. He is going for CT angiogram following PE protocol this morning. - Problems/Diagnosis (1) Acute respiratory failure with hypoxemia Problem: Acute (2) Acute respiratory alkalosis Problem: Acute (3) Pneumonia due to COVID-19 virus Problem: Acute (4) Elevated d-dimer Problem: Acute (5) IFG (impaired fasting glucose) Problem: Chronic (6) RLS (restless legs syndrome) Problem: Chronic (7) Psoriatic arthropathy Problem: Chronic (8) JEANETTE (obstructive sleep apnea) Problem: Chronic (9) Hyperlipidemia Problem: Chronic Qualifiers:
[2020-08-18] MEDS: DEXAMETHASONE SODIUM PHOSP/PF 10 MG/ML VIAL IV SCH (10:18)
[2020-08-18] MEDS: FOLIC ACID 1 MG TABLET PO SCH (12:04)
[2020-08-18] MEDS: FINASTERIDE 5 MG TABLET PO SCH (12:05)
[2020-08-18] MEDS: CALCIUM CARBONATE 500 MG TAB.CHEW PO SCH ×2 (12:05→21:05)
[2020-08-18] MEDS: CHOLECALCIFEROL 1,000 UNIT CAPSULE PO SCH (12:06)
[2020-08-18] MEDS: ASCORBIC ACID 500 MG TABLET PO SCH (12:06)
[2020-08-18] MEDS: VITAMIN E (DL,TOCOPHERYL ACET) 400 UNITS CAPSULE PO SCH (12:08)
[2020-08-18] MEDS: MULTIVITAMINS 1 CAP CAPSULE PO SCH (12:08)
[2020-08-18] MEDS: POTASSIUM CHLORIDE 20 MEQ TABLET.SA PO SCH (12:08)
[2020-08-18] MEDS: CYANOCOBALAMIN 1,000 MCG TABLET PO SCH (12:11)
[2020-08-18] MEDS: TAMSULOSIN HCL 0.4 MG CAP.SR.24H PO SCH (21:04)
[2020-08-18] MEDS: rOPINIRole HCL 0.5 MG TABLET PO SCH (21:04)
[2020-08-18] MEDS: MELATONIN 3,000 MCG TABLET PO SCH (21:04)
[2020-08-18] MEDS: rOPINIRole HCL 1 MG TABLET PO SCH (21:05)
[2020-08-19] MEDS: DEXAMETHASONE SODIUM PHOSP/PF 10 MG/ML VIAL IV SCH (08:28)
[2020-08-19] MEDS: CYANOCOBALAMIN 1,000 MCG TABLET PO SCH (08:29)
[2020-08-19] MEDS: MULTIVITAMINS 1 CAP CAPSULE PO SCH (08:29)
[2020-08-19] MEDS: FINASTERIDE 5 MG TABLET PO SCH (08:29)
[2020-08-19] MEDS: VITAMIN E (DL,TOCOPHERYL ACET) 400 UNITS CAPSULE PO SCH (08:30)
[2020-08-19] MEDS: FOLIC ACID 1 MG TABLET PO SCH (08:30)
[2020-08-19] MEDS: METOPROLOL TARTRATE 25 MG TABLET PO SCH ×2 (08:30→20:03)
[2020-08-19] MEDS: POTASSIUM CHLORIDE 20 MEQ TABLET.SA PO SCH (08:31)
[2020-08-19] MEDS: CHOLECALCIFEROL 1,000 UNIT CAPSULE PO SCH (08:31)
[2020-08-19] MEDS: CALCIUM CARBONATE 500 MG TAB.CHEW PO SCH ×2 (08:32→20:04)
[2020-08-19] MEDS: ASCORBIC ACID 500 MG TABLET PO SCH (08:32)
[2020-08-19] MEDS ORDERED: ENOXAPARIN SODIUM 40 MG/0.4 ML SYRG SC SCH (09:00)
[2020-08-19] MEDS: ENOXAPARIN SODIUM 40 MG/0.4 ML SYRG SC SCH ×2 (09:03→19:50)
--- NOTE | 2020-08-19 10:18 | PN ---
Subjective - Date and Time Seen Date: 08/19/20 Time: 10:11 Subjective Narrative: Patient is short of breath with exertion. He has been on 1 to 2 L of nasal cannula yesterday. His CT scan did not show pulmonary embolism. Objective - Review of Systems Generalized/Overall Review: Reports: Weakness. Denies: Chills, Fever EENTM: Denies: Blurred Vision Respiratory: Reports: Cough, Shortness of Breath. Denies: Wheezing Cardiac: Denies: Chest Pain, Edema, Palpitations Abdominal: Denies: Nausea, Vomiting, Hematemesis Genitourinary Symptoms: Denies: Urgency, Frequency Musculoskeletal Complaints: Reports: Joint Pain Neurological: Denies: Headache Skin: Denies: Lesions, Rash Misc: All systems neg except as marked - Vitals Vitals: Last Vital Signs Temp 36.0 C 08/19/20 09:00 Pulse 87 08/19/20 09:00 Resp 22 H 08/19/20 09:00 BP 118/72 08/19/20 09:00 Pulse Ox 91 L 08/19/20 09:00 - Exam Constitutional: Present: Alert, Oriented x3, Cooperative ENT Exam: Present: hearing grossly normal Neck: Present: supple. Absent: lymphadenopathy (R), lymphadenopathy (L) Respiratory: Present: decreased breath sounds, crackles, No wheezing Cardiovascular/Chest: Present: regular rate, rhythm, no JVD, no murmur Abdomen: Present: Normal bowel sounds, soft, nontender, nondistended Extremity: Present: no calf tenderness. Absent: lower extremity edema Assessment/Plan Plan Narrative: Jose was admitted for acute respiratory failure hypoxemic type due to Covid pneumonia. His CT angiogram did not show pulmonary embolism but showed dense airspace consolidation in all lung bardales consistent with multifocal Covid pneumonia. His biomarkers are also way up high and we will need to watch out for possible progression to ARDS/cytokine storm. He is day 13 post onset of symptoms. We will do a follow-up of his biomarkers tomorrow. I talked to pharmacy and we do not carry Tocilizumab in case of patient getting worse we may need to transfer him. We will also increase his subcu Lovenox to 40 mg subcu twice daily for DVT prophylaxis as it has been found in studies that the 40 mg once a day does not really protect Covid patients from DVT- 23 to 27% still developed deep vein thromboembolism. - Problems/Diagnosis (1) Acute respiratory failure with hypoxemia Problem: Acute (2) Acute respiratory alkalosis Problem: Acute (3) Pneumonia due to COVID-19 virus Problem: Acute (4) Elevated d-dimer Problem: Acute (5) IFG (impaired fasting glucose) Problem: Chronic (6) RLS (restless legs syndrome) Problem: Chronic (7) Psoriatic arthropathy Problem: Chronic (8) JEANETTE (obstructive sleep apnea) Problem: Chronic (9) Hyperlipidemia Problem: Chronic Qualifiers:
[2020-08-19] MEDS: rOPINIRole HCL 1 MG TABLET PO SCH (20:02)
[2020-08-19] MEDS: MELATONIN 3,000 MCG TABLET PO SCH (20:03)
[2020-08-19] MEDS: TAMSULOSIN HCL 0.4 MG CAP.SR.24H PO SCH (20:03)
[2020-08-19] MEDS: rOPINIRole HCL 0.5 MG TABLET PO SCH (20:04)
[2020-08-20 06:53] LABS: Hematocrit 41.9 % (42.0-52.0); Hemoglobin 13.9 gm/dL (13.5-18.0); Mean Cell Volume 98.4 fl (78-100); Mean Corpuscular Hemoglobin 32.6 pg (27-31); Mean Corpuscular Hgb Conc 33.2 g/dl (32-36); Mean Platelet Volume 10.3 fl (8-11.3); Neutrophil # 9.3 K/mm3 (1.3-6.0); Neutrophil % 81.4 % (42-75.0); Platelet Count 251 K/mm3 (150-450); Red Blood Count 4.26 M/mm3 (4.7-6.0); Red Cell Distribution Width 13.2 % (11.5-14.0); White Blood Count 11.4 K/mm3 (4.0-10.5)
[2020-08-20 07:20] LABS: Anion Gap 10.9 mmol/L (6.8-13.8); BUN/Creatinine Ratio 33.3 (9.0-21.6); CRP 2.6 mg/dL (0.0-0.9); Calcium * 8.5 mg/dL (7.9-10.9); Carbon Dioxide 27.9 mmol/L (24-32.6); Estimated Creat Clear 76.3; Potassium 4.8 mmol/L (3.4-4.6)
[2020-08-20] MEDS: ENOXAPARIN SODIUM 40 MG/0.4 ML SYRG SC SCH ×2 (08:47→20:30)
[2020-08-20] MEDS: CHOLECALCIFEROL 1,000 UNIT CAPSULE PO SCH (08:48)
[2020-08-20] MEDS: MULTIVITAMINS 1 CAP CAPSULE PO SCH (08:48)
[2020-08-20] MEDS: METOPROLOL TARTRATE 25 MG TABLET PO SCH ×2 (08:48→20:33)
[2020-08-20] MEDS: FOLIC ACID 1 MG TABLET PO SCH (08:48)
[2020-08-20] MEDS: POTASSIUM CHLORIDE 20 MEQ TABLET.SA PO SCH (08:49)
[2020-08-20] MEDS: ASCORBIC ACID 500 MG TABLET PO SCH (08:49)
[2020-08-20] MEDS: FINASTERIDE 5 MG TABLET PO SCH (08:49)
[2020-08-20] MEDS: LORazepam 0.5 MG TABLET PO PRN ×2 (08:49→20:30)
[2020-08-20] MEDS: CYANOCOBALAMIN 1,000 MCG TABLET PO SCH (08:49)
[2020-08-20] MEDS: CALCIUM CARBONATE 500 MG TAB.CHEW PO SCH ×2 (08:49→20:31)
[2020-08-20] MEDS: DEXAMETHASONE SODIUM PHOSP/PF 10 MG/ML VIAL IV SCH (08:49)
[2020-08-20] MEDS: VITAMIN E (DL,TOCOPHERYL ACET) 400 UNITS CAPSULE PO SCH (08:49)
[2020-08-20] MEDS ORDERED: DEXAMETHASONE SODIUM PHOSPHATE 10 MG/ML VIAL IV ONE (08:50)
--- NOTE | 2020-08-20 11:27 | PN ---
Subjective - Date and Time Seen Date: 08/20/20 Time: 08:50 Subjective Narrative: Jose is needing higher oxygen supplementation overnight and this morning. He desaturates easily with exertion. Objective - Review of Systems Generalized/Overall Review: Reports: Weakness. Denies: Chills, Fever EENTM: Denies: Blurred Vision Respiratory: Reports: Cough, Shortness of Breath, Orthopnea Cardiac: Denies: Chest Pain, Edema, Palpitations Abdominal: Denies: Nausea, Vomiting, Abdominal Pain Genitourinary Symptoms: Denies: Urgency, Frequency Musculoskeletal Complaints: Denies: Joint Pain Neurological: Denies: Headache Skin: Denies: Lesions, Rash Misc: All systems neg except as marked - Vitals Vitals: Last Vital Signs Temp 36.5 C 08/20/20 11:06 Pulse 68 08/20/20 11:06 Resp 24 H 08/20/20 11:06 BP 108/64 08/20/20 11:06 Pulse Ox 94 08/20/20 11:06 - Abnormal Lab Findings Abnormal Lab Findings: Abnormal Lab Results 08/20/20 08/20/20 Range/Units 06:45 06:45 WBC 11.4 H D (4.0-10.5) K/mm3 RBC 4.26 L (4.7-6.0) M/mm3 Hct 41.9 L (42.0-52.0) % MCH 32.6 H (27-31) pg Immature Gran % (Auto) 2.40 H (0.001-0.429) % Immature Gran # (Auto) 0.27 H (0.000-0.0310) K/mm3 Neutrophils % 81.4 H (42-75.0) % Lymphocytes % 9.0 L (20-51) % Neutrophils # 9.3 H (1.3-6.0) K/mm3 Lymphocytes # 1.03 L (1.5-3.5) k/mm3 Potassium 4.8 H (3.4-4.6) mmol/L BUN 32 H (6-23) mg/dL BUN/Creatinine Ratio 33.3 H (9.0-21.6) Ferritin 776 H (26-388) ng/mL Lactate Dehydrogenase 320 H (85-227) U/L C-Reactive Prot, Quant 2.6 H (0.0-0.9) mg/dL - Exam Constitutional: Present: Alert, Oriented x3 ENT Exam: Present: hearing grossly normal Neck: Present: supple. Absent: lymphadenopathy (R), lymphadenopathy (L) Respiratory: Present: decreased breath sounds, crackles, No wheezing Cardiovascular/Chest: Present: regular rate, rhythm, no JVD, no murmur Abdomen: Present: Normal bowel sounds, soft, nontender, nondistended Extremity: Present: no calf tenderness. Absent: lower extremity edema Assessment/Plan Plan Narrative: Jose is hospital day 4 for acute respiratory failure hypoxemic type secondary to acute Covid pneumonia. We started him this morning on high flow oxygen via nasal cannula at 10 L to keep oxygen saturation equal to above 93%. Since our high flow nasal cannula only goes up to 15 L we will need to change him then to either a CPAP or BiPAP pending ABG findings if he is going to need it this high without improvement of his oxygen. Patient is aware of the fact that if CPAP or BiPAP does not work he will need to be intubated and will need to be t ransferred. Since we do not have Tocilizumab to add to his dexamethasone we will increase his IV dexamethasone from 6 to 20 mg today and may be even go up to 20 mg daily for total of 5 days and then down to 10 mg for 5 days. His inflammatory markers are improved but still elevated. Will do Combivent Respimat NEB BID and may increase to QID. Consider doing CPAP or BiPap tonight so he can have a break from HFNC and will help with recruitment. Will get a follow up CXR in the morning or Sunday. - Problems/Diagnosis (1) Acute respiratory failure with hypoxemia Problem: Acute (2) Acute respiratory alkalosis Problem: Acute (3) Pneumonia due to COVID-19 virus Problem: Acute (4) Elevated d-dimer Problem: Acute (5) IFG (impaired fasting glucose) Problem: Chronic (6) RLS (restless legs syndrome) Problem: Chronic (7) Psoriatic arthropathy Problem: Chronic (8) JEANETTE (obstructive sleep apnea) Problem: Chronic (9) Hyperlipidemia Problem: Chronic Qualifiers:
[2020-08-20] MEDS: IPRATROPIUM/ALBUTEROL SULFATE 120 PUFF INHALER IH SCH (18:40)
[2020-08-20] MEDS: rOPINIRole HCL 0.5 MG TABLET PO SCH (20:30)
[2020-08-20] MEDS: MELATONIN 3,000 MCG TABLET PO SCH (20:31)
[2020-08-20] MEDS: TAMSULOSIN HCL 0.4 MG CAP.SR.24H PO SCH (20:31)
[2020-08-20] MEDS: rOPINIRole HCL 1 MG TABLET PO SCH (20:31)
[2020-08-20] MEDS ORDERED: DEXAMETHASONE SODIUM PHOSP/PF 10 MG/ML VIAL IV ONE (21:00)
[2020-08-21] MEDS: ENOXAPARIN SODIUM 40 MG/0.4 ML SYRG SC SCH ×2 (08:28→20:13)
[2020-08-21] MEDS: IPRATROPIUM/ALBUTEROL SULFATE 120 PUFF INHALER IH SCH ×2 (08:28→18:44)
[2020-08-21] MEDS: CHOLECALCIFEROL 1,000 UNIT CAPSULE PO SCH (08:29)
[2020-08-21] MEDS: ASCORBIC ACID 500 MG TABLET PO SCH (08:29)
[2020-08-21] MEDS: FINASTERIDE 5 MG TABLET PO SCH (08:29)
[2020-08-21] MEDS: VITAMIN E (DL,TOCOPHERYL ACET) 400 UNITS CAPSULE PO SCH (08:29)
[2020-08-21] MEDS: POTASSIUM CHLORIDE 20 MEQ TABLET.SA PO SCH (08:29)
[2020-08-21] MEDS: MULTIVITAMINS 1 CAP CAPSULE PO SCH (08:29)
[2020-08-21] MEDS: CALCIUM CARBONATE 500 MG TAB.CHEW PO SCH ×2 (08:29→20:15)
[2020-08-21] MEDS: CYANOCOBALAMIN 1,000 MCG TABLET PO SCH (08:29)
[2020-08-21] MEDS: FOLIC ACID 1 MG TABLET PO SCH (08:29)
[2020-08-21] MEDS: DEXAMETHASONE SODIUM PHOSP/PF 10 MG/ML VIAL IV SCH (09:32)
[2020-08-21] MEDS: METOPROLOL TARTRATE 25 MG TABLET PO SCH ×2 (10:52→20:15)
--- NOTE | 2020-08-21 11:18 | PN ---
Subjective - Date and Time Seen Date: 08/21/20 Time: 11:16 Subjective Narrative: patient on a recliner and just finished his whole turkey sandwhich. he says he has not lost his taste and appetite. Objective - Review of Systems Generalized/Overall Review: Reports: Weakness. Denies: Chills, Fever EENTM: Denies: Blurred Vision Respiratory: Reports: Cough, Shortness of Breath. Denies: Orthopnea Cardiac: Denies: Chest Pain, Edema, Palpitations Abdominal: Denies: Nausea, Vomiting, Abdominal Pain Genitourinary Symptoms: Denies: Urgency, Frequency Neurological: Reports: Anxiety Skin: Denies: Lesions, Rash Misc: All systems neg except as marked - Vitals Vitals: Last Vital Signs Temp 36.8 C 08/21/20 11:01 Pulse 81 08/21/20 11:01 Resp 21 H 08/21/20 11:01 BP 115/71 08/21/20 11:01 Pulse Ox 95 08/21/20 11:01 - Exam Constitutional: Present: Alert, Oriented x3, Cooperative ENT Exam: Present: hearing grossly normal Neck: Present: supple. Absent: lymphadenopathy (R), lymphadenopathy (L) Respiratory: Present: decreased breath sounds, crackles, wheezing - Occasional Cardiovascular/Chest: Present: regular rate, rhythm, no JVD, no murmur Abdomen: Present: Normal bowel sounds, soft, nontender, nondistended Extremity: Present: no pedal edema, no calf tenderness Assessment/Plan Plan Narrative: Jose is hospital day 5 for Covid pneumonia with acute respiratory failure hypoxemic type. He is needing high flow nasal cannula oxygenation running anywhere from 8 to 15 L. His oxygen saturation drops down to the 60's -80's whenever he does exertion like doing the commode. His respiratory rate has improved from 24-40 on his first 3 of hospitalization to around 17-31 mostly in the 20-22 range. He notes that if he continues to need higher flows of oxygenation he will be needing a CPAP or BiPAP. I will start him also on IV Protonix as I have increase his dexamethasone to 20 mg IV daily. We will also increase his Ativan 2.5 mg p.o. 3 times daily from twice daily for his anxiety. We will do blood work tomorrow, ABG and a follow-up chest x-ray in the morning. - Problems/Diagnosis (1) Acute respiratory failure with hypoxemia Problem: Acute (2) Acute respiratory alkalosis Problem: Acute (3) Pneumonia due to COVID-19 virus Problem: Acute (4) Elevated d-dimer Problem: Acute (5) Generalized anxiety disorder with panic attacks Problem: Acute (6) IFG (impaired fasting glucose) Problem: Chronic (7) RLS (restless legs syndrome) Problem: Chronic (8) Psoriatic arthropathy Problem: Chronic (9) JEANETTE (obstructive sleep apnea) Problem: Chronic (10) Hyperlipidemia Problem: Chronic Qualifiers:
[2020-08-21] MEDS: PANTOPRAZOLE SODIUM 40 MG in NORMAL SALINE 100 ML IV SCH (16:35)
[2020-08-21] MEDS: MELATONIN 3,000 MCG TABLET PO SCH (20:14)
[2020-08-21] MEDS: rOPINIRole HCL 1 MG TABLET PO SCH (20:14)
[2020-08-21] MEDS: rOPINIRole HCL 0.5 MG TABLET PO SCH (20:15)
[2020-08-21] MEDS: TAMSULOSIN HCL 0.4 MG CAP.SR.24H PO SCH (20:16)
[2020-08-22 07:50] LABS: Hematocrit 46.2 % (42.0-52.0); Hemoglobin 15.1 gm/dL (13.5-18.0); Mean Cell Volume 98.5 fl (78-100); Mean Corpuscular Hemoglobin 32.2 pg (27-31); Mean Corpuscular Hgb Conc 32.7 g/dl (32-36); Mean Platelet Volume 10.1 fl (8-11.3); Platelet Count 338 K/mm3 (150-450); Red Blood Count 4.69 M/mm3 (4.7-6.0); Red Cell Distribution Width 13.2 % (11.5-14.0); White Blood Count 14.3 K/mm3 (4.0-10.5)
[2020-08-22 07:59] LABS: Total Cells Counted 100
[2020-08-22] MEDS: IPRATROPIUM/ALBUTEROL SULFATE 120 PUFF INHALER IH SCH ×2 (08:26→20:12)
[2020-08-22] MEDS: FOLIC ACID 1 MG TABLET PO SCH (08:27)
[2020-08-22] MEDS: ASCORBIC ACID 500 MG TABLET PO SCH (08:27)
[2020-08-22] MEDS: DEXAMETHASONE SODIUM PHOSP/PF 10 MG/ML VIAL IV SCH (08:27)
[2020-08-22] MEDS: ENOXAPARIN SODIUM 40 MG/0.4 ML SYRG SC SCH ×2 (08:27→21:09)
[2020-08-22] MEDS: METOPROLOL TARTRATE 25 MG TABLET PO SCH ×2 (08:27→21:08)
[2020-08-22] MEDS: LORazepam 0.5 MG TABLET PO PRN ×2 (08:28→21:05)
[2020-08-22] MEDS: FINASTERIDE 5 MG TABLET PO SCH (08:28)
[2020-08-22] MEDS: CHOLECALCIFEROL 1,000 UNIT CAPSULE PO SCH (08:28)
[2020-08-22] MEDS: VITAMIN E (DL,TOCOPHERYL ACET) 400 UNITS CAPSULE PO SCH (08:28)
[2020-08-22] MEDS: CYANOCOBALAMIN 1,000 MCG TABLET PO SCH (08:28)
[2020-08-22] MEDS: POTASSIUM CHLORIDE 20 MEQ TABLET.SA PO SCH (08:28)
[2020-08-22] MEDS: CALCIUM CARBONATE 500 MG TAB.CHEW PO SCH ×2 (08:28→21:09)
[2020-08-22] MEDS: MULTIVITAMINS 1 CAP CAPSULE PO SCH (08:28)
[2020-08-22 08:41] LABS: Lymphocyte 12 % (20-51); Monocyte 7 % (0-9); Neutrophil 81 % (42-75); Neutrophil # 11.6 K/mm3 (1.3-6.0); Platelet Estimate Normal (NORMAL); RBC Morphology Normal (NORMAL)
[2020-08-22 08:48] LABS: Anion Gap 11.4 mmol/L (6.8-13.8); BUN/Creatinine Ratio 36.5 (9.0-21.6); CRP 1.1 mg/dL (0.0-0.9); Calcium * 8.9 mg/dL (7.9-10.9); Carbon Dioxide 30.6 mmol/L (24-32.6); Estimated Creat Clear 76.3
--- NOTE | 2020-08-22 10:31 | PN ---
Subjective - Date and Time Seen Date: 08/22/20 Time: 10:29 Subjective Narrative: has been able to tolerate 5-6 L O2 NC for some period of time but would desat with activity and needing HFNC to return to >93%. elevated WBC likely due to steroids Objective - Review of Systems Generalized/Overall Review: Reports: Weakness. Denies: Chills, Fever EENTM: Denies: Blurred Vision Respiratory: Reports: Cough, Shortness of Breath, Wheezing - Occasional Cardiac: Denies: Chest Pain, Edema, Palpitations Abdominal: Denies: Nausea, Vomiting, Abdominal Pain Genitourinary Symptoms: Denies: Urgency, Frequency Musculoskeletal Complaints: Denies: Joint Pain Neurological: Denies: Headache Skin: Denies: Lesions, Rash Misc: All systems neg except as marked - Vitals Vitals: Last Vital Signs Temp 36.8 C 08/22/20 08:31 Pulse 90 08/22/20 08:31 Resp 18 08/22/20 08:31 BP 127/70 08/22/20 08:31 Pulse Ox 94 08/22/20 04:54 - Abnormal Lab Findings Abnormal Lab Findings: Abnormal Lab Results 08/22/20 08/22/20 08/22/20 Range/Units 07:24 07:45 07:45 WBC 14.3 H D (4.0-10.5) K/mm3 RBC 4.69 L (4.7-6.0) M/mm3 MCH 32.2 H (27-31) pg Neutrophils % (Manual) 81 H (42-75) % Lymphocytes % (Manual) 12 L (20-51) % Neutrophils # (Manual) 11.6 H (1.3-6.0) K/mm3 pO2 52.9 L (83.0-108.0) mmHg Total CO2 28.7 H (19.0-24.0) mmol/L Base Excess 3.7 H (-2.0-3.0) mmol/L ABG pH 7.47 H (7.35-7.45) ABG O2 Sat (Measured) 89.4 L (94.0-98.0) % Potassium 5.0 H (3.4-4.6) mmol/L BUN 35 H (6-23) mg/dL BUN/Creatinine Ratio 36.5 H (9.0-21.6) Ferritin 644 H (26-388) ng/mL Lactate Dehydrogenase 344 H (85-227) U/L C-Reactive Prot, Quant 1.1 H (0.0-0.9) mg/dL - Exam Constitutional: Present: Alert, Oriented x3, Cooperative ENT Exam: Present: hearing grossly normal Neck: Present: supple. Absent: lymphadenopathy (R), lymphadenopathy (L) Respiratory: Present: decreased breath sounds, crackles, wheezing - Occasional Cardiovascular/Chest: Present: regular rate, rhythm, no JVD, no murmur Abdomen: Present: Normal bowel sounds, soft, nontender, nondistended Extremity: Present: no calf tenderness. Absent: lower extremity edema Assessment/Plan Plan Narrative: Jose is hospital day 6 for acute respiratory failure hypoxemic type secondary to Covid pneumonia. He is intermittently on low-flow nasal cannula going back to high flow nasal cannula with activity. His ABG at 5 L nasal cannula shows respiratory alkalosis with hypoxemia. His white blood cell count continues to be elevated and likely due to his dexamethasone. I discussed the possibility of a bacterial infection on top of it but since his chest x-ray showed no progression of this infiltrates I am hesitant to start him on antibiotics. I will get a procalcitonin and if elevated I will start him on Levaquin. I told him that it is going to be several days before we will see more significant improvement. His inflammatory markers are continuing on a downward trend. ADDENDUM: His procalcitonin is <0.05. Will defer from giving antibiotics for now. When he goes back to low flow nasal cannula it should stay at least at 6 L to improve his oxygen saturation. - Problems/Diagnosis (1) Acute respiratory failure with hypoxemia Problem: Acute (2) Acute respiratory alkalosis Problem: Acute (3) Pneumonia due to COVID-19 virus Problem: Acute (4) Elevated d-dimer Problem: Acute (5) Generalized anxiety disorder with panic attacks Problem: Acute (6) IFG (impaired fasting glucose) Problem: Chronic (7) RLS (restless legs syndrome) Problem: Chronic (8) Psoriatic arthropathy Problem: Chronic (9) JEANETTE (obstructive sleep apnea) Problem: Chronic (10) Hyperlipidemia Problem: Chronic Qualifiers:
[2020-08-22] MEDS: PANTOPRAZOLE SODIUM 40 MG in NORMAL SALINE 100 ML IV SCH (15:58)
[2020-08-22] MEDS: rOPINIRole HCL 1 MG TABLET PO SCH (21:06)
[2020-08-22] MEDS: TAMSULOSIN HCL 0.4 MG CAP.SR.24H PO SCH (21:06)
[2020-08-22] MEDS: rOPINIRole HCL 0.5 MG TABLET PO SCH (21:06)
[2020-08-22] MEDS: MELATONIN 3,000 MCG TABLET PO SCH (21:07)
[2020-08-23] MEDS: IPRATROPIUM/ALBUTEROL SULFATE 120 PUFF INHALER IH SCH ×2 (07:49→19:41)
[2020-08-23] MEDS: METOPROLOL TARTRATE 25 MG TABLET PO SCH ×3 (08:38→20:18)
[2020-08-23] MEDS: ENOXAPARIN SODIUM 40 MG/0.4 ML SYRG SC SCH ×2 (08:38→20:19)
[2020-08-23] MEDS: CYANOCOBALAMIN 1,000 MCG TABLET PO SCH (08:38)
[2020-08-23] MEDS: CHOLECALCIFEROL 1,000 UNIT CAPSULE PO SCH (08:38)
[2020-08-23] MEDS: ASCORBIC ACID 500 MG TABLET PO SCH (08:38)
[2020-08-23] MEDS: FINASTERIDE 5 MG TABLET PO SCH (08:38)
[2020-08-23] MEDS: DEXAMETHASONE SODIUM PHOSP/PF 10 MG/ML VIAL IV SCH (08:39)
[2020-08-23] MEDS: VITAMIN E (DL,TOCOPHERYL ACET) 400 UNITS CAPSULE PO SCH (08:39)
[2020-08-23] MEDS: FOLIC ACID 1 MG TABLET PO SCH (08:39)
[2020-08-23] MEDS: CALCIUM CARBONATE 500 MG TAB.CHEW PO SCH ×2 (08:39→20:17)
[2020-08-23] MEDS: MULTIVITAMINS 1 CAP CAPSULE PO SCH (08:39)
[2020-08-23] MEDS: POTASSIUM CHLORIDE 20 MEQ TABLET.SA PO SCH (09:44)
--- NOTE | 2020-08-23 09:56 | PN ---
Subjective - Date and Time Seen Date: 08/23/20 Time: 09:55 Subjective Narrative: Jose is on high flow nasal cannula at 8 L. The patient was told that it might take some time for him to recover from this as he is immunocompromised from the treatment he has been receiving for his psoriatic arthropathy. He was on infliximab and methotrexate. Objective - Review of Systems Generalized/Overall Review: Reports: Weakness. Denies: Chills, Fever EENTM: Denies: Blurred Vision Respiratory: Reports: Cough, Shortness of Breath. Denies: Wheezing Cardiac: Denies: Chest Pain, Edema, Palpitations Abdominal: Denies: Nausea, Vomiting, Abdominal Pain Genitourinary Symptoms: Denies: Urgency, Frequency Neurological: Denies: Headache Skin: Denies: Lesions, Rash Misc: All systems neg except as marked - Vitals Vitals: Last Vital Signs Temp 36.8 C 08/23/20 08:33 Pulse 94 08/23/20 09:45 Resp 26 H 08/23/20 08:33 BP 115/74 08/23/20 09:45 Pulse Ox 96 08/23/20 08:33 - Abnormal Lab Findings Abnormal Lab Findings: Abnormal Lab Results 08/22/20 Range/Units 07:45 Procalcitonin Less than 0.05 L (0.05-0.50) ng/mL - Exam Constitutional: Present: Alert, Oriented x3, Cooperative ENT Exam: Present: hearing grossly normal Neck: Present: supple. Absent: lymphadenopathy (R), lymphadenopathy (L) Respiratory: Present: decreased breath sounds, crackles, wheezing - Occasional, No rales Cardiovascular/Chest: Present: regular rate, rhythm, no JVD, no murmur Abdomen: Present: Normal bowel sounds, soft, nontender, nondistended Extremity: Present: no pedal edema, no calf tenderness Assessment/Plan Plan Narrative: Jose is hospital day 7 for acute respiratory failure hypoxemic type due to Covid pneumonia. He is on high flow nasal cannula at 8 L. I discussed with him that may be tonight we will keep him on a CPAP or a BiPAP in the evenings and he can go to a low flow nasal cannula or high flow nasal cannula in the daytime. I discussed this plan with the patient and the ICU nurse as well as the respiratory therapist. I did not start him on antibiotics as I feel that this is still viral covid pneumonia and the leukocytosis is secondary to his high- dose dexamethasone. His CXR done yesterday did not worsening of his infiltrates. I have extended his 20 mg dexamethasone for another 2 days and then go down to either 10 mg or 6 mg thereafter. We do not have Tocilizumab nor does [facility]. - Problems/Diagnosis (1) Acute respiratory failure with hypoxemia Problem: Acute (2) Acute respiratory alkalosis Problem: Acute (3) Pneumonia due to COVID-19 virus Problem: Acute (4) Elevated d-dimer Problem: Acute (5) Generalized anxiety disorder with panic attacks Problem: Acute (6) IFG (impaired fasting glucose) Problem: Chronic (7) RLS (restless legs syndrome) Problem: Chronic (8) Psoriatic arthropathy Problem: Chronic (9) JEANETTE (obstructive sleep apnea) Problem: Chronic (10) Hyperlipidemia Problem: Chronic Qualifiers:
[2020-08-23] MEDS: PANTOPRAZOLE SODIUM 40 MG in NORMAL SALINE 100 ML IV SCH (17:29)
[2020-08-23] MEDS: rOPINIRole HCL 0.5 MG TABLET PO SCH (20:17)
[2020-08-23] MEDS: rOPINIRole HCL 1 MG TABLET PO SCH (20:17)
[2020-08-23] MEDS: MELATONIN 3,000 MCG TABLET PO SCH (20:18)
[2020-08-23] MEDS: LORazepam 0.5 MG TABLET PO PRN (20:19)
[2020-08-23] MEDS: TAMSULOSIN HCL 0.4 MG CAP.SR.24H PO SCH (20:20)
[2020-08-24 06:43] LABS: Hematocrit 44.1 % (42.0-52.0); Hemoglobin 14.5 gm/dL (13.5-18.0); Mean Cell Volume 99.1 fl (78-100); Mean Corpuscular Hemoglobin 32.6 pg (27-31); Mean Corpuscular Hgb Conc 32.9 g/dl (32-36); Mean Platelet Volume 9.8 fl (8-11.3); Neutrophil # 10.4 K/mm3 (1.3-6.0); Neutrophil % 77.6 % (42-75.0); Platelet Count 328 K/mm3 (150-450); Red Blood Count 4.45 M/mm3 (4.7-6.0); Red Cell Distribution Width 13.2 % (11.5-14.0); White Blood Count 13.4 K/mm3 (4.0-10.5)
[2020-08-24] MEDS: IPRATROPIUM/ALBUTEROL SULFATE 120 PUFF INHALER IH SCH ×2 (06:44→19:16)
[2020-08-24 07:04] LABS: Anion Gap 11.2 mmol/L (6.8-13.8); BUN/Creatinine Ratio 37.2 (9.0-21.6); CRP 0.7 mg/dL (0.0-0.9); Calcium * 8.5 mg/dL (7.9-10.9); Carbon Dioxide 26.2 mmol/L (24-32.6); Potassium 4.4 mmol/L (3.4-4.6)
[2020-08-24] MEDS: CHOLECALCIFEROL 1,000 UNIT CAPSULE PO SCH (08:42)
[2020-08-24] MEDS: FINASTERIDE 5 MG TABLET PO SCH (08:42)
[2020-08-24] MEDS: METOPROLOL TARTRATE 25 MG TABLET PO SCH ×2 (08:42→21:25)
[2020-08-24] MEDS: CYANOCOBALAMIN 1,000 MCG TABLET PO SCH (08:42)
[2020-08-24] MEDS: ENOXAPARIN SODIUM 40 MG/0.4 ML SYRG SC SCH ×2 (08:42→21:18)
[2020-08-24] MEDS: VITAMIN E (DL,TOCOPHERYL ACET) 400 UNITS CAPSULE PO SCH (08:42)
[2020-08-24] MEDS: ASCORBIC ACID 500 MG TABLET PO SCH (08:43)
[2020-08-24] MEDS: DEXAMETHASONE SODIUM PHOSP/PF 10 MG/ML VIAL IV SCH (08:43)
[2020-08-24] MEDS: FOLIC ACID 1 MG TABLET PO SCH (08:43)
[2020-08-24] MEDS: POTASSIUM CHLORIDE 20 MEQ TABLET.SA PO SCH (08:43)
[2020-08-24] MEDS: MULTIVITAMINS 1 CAP CAPSULE PO SCH (08:43)
[2020-08-24] MEDS: CALCIUM CARBONATE 500 MG TAB.CHEW PO SCH ×2 (08:43→21:19)
--- NOTE | 2020-08-24 09:13 | PN ---
Subjective - Date and Time Seen Date: 08/24/20 Time: 09:12 Subjective Narrative: tolerated CPAP. He is asking if it is too late to start him on the malarial drug hydroxychloroquine. I told him that studies have shown that it does not work at all for Covid. Objective - Review of Systems Generalized/Overall Review: Reports: Weakness. Denies: Chills, Fever EENTM: Denies: Blurred Vision Respiratory: Reports: Cough, Shortness of Breath. Denies: Wheezing Cardiac: Denies: Chest Pain, Edema, Palpitations Abdominal: Denies: Nausea, Vomiting, Abdominal Pain Genitourinary Symptoms: Denies: Urgency, Frequency Musculoskeletal Complaints: Denies: Joint Pain Neurological: Denies: Headache Skin: Denies: Lesions, Rash Misc: All systems neg except as marked - Vitals Vitals: Last Vital Signs Temp 37.2 C 08/24/20 05:31 Pulse 51 L 08/24/20 08:42 Resp 12 08/24/20 05:31 BP 126/73 08/24/20 08:42 Pulse Ox 98 08/24/20 05:31 - Abnormal Lab Findings Abnormal Lab Findings: Abnormal Lab Results 08/23/20 08/24/20 08/24/20 Range/Units 22:18 06:35 06:35 WBC 13.4 H (4.0-10.5) K/mm3 RBC 4.45 L (4.7-6.0) M/mm3 MCH 32.6 H (27-31) pg Immature Gran % (Auto) 4.30 H (0.001-0.429) % Immature Gran # (Auto) 0.58 H (0.000-0.0310) K/mm3 Neutrophils % 77.6 H (42-75.0) % Lymphocytes % 9.1 L (20-51) % Neutrophils # 10.4 H (1.3-6.0) K/mm3 Lymphocytes # 1.22 L (1.5-3.5) k/mm3 Monocytes # 1.1 H (0.0-1.0) k/mm3 Total CO2 29.0 H (19.0-24.0) mmol/L Base Excess 3.7 H (-2.0-3.0) mmol/L ABG pH 7.46 H (7.35-7.45) BUN 35 H (6-23) mg/dL BUN/Creatinine Ratio 37.2 H (9.0-21.6) - Exam Constitutional: Present: Alert, Oriented x3, Cooperative ENT Exam: Present: hearing grossly normal Neck: Present: supple. Absent: lymphadenopathy (R), lymphadenopathy (L) Respiratory: Present: decreased breath sounds, No rales, No wheezing Cardiovascular/Chest: Present: regular rate, rhythm, no JVD, no murmur Abdomen: Present: Normal bowel sounds, soft, nontender, nondistended Extremity: Present: no pedal edema, no calf tenderness Assessment/Plan Plan Narrative: Jose is hospital day 8 of acute respiratory failure hypoxemic type due to Covid pneumonia. He is on 8 L of high flow nasal cannula. He tolerated CPAP yesterday. He is ABG yesterday on CPAP of 10 FiO2 of 50% showed pH of 7.46, PCO2 of 39.9, PO2 of 91.5, bicarb of 27.7, oxygen saturation of 97.4%. We will keep patient on CPAP at night and nasal cannula in the daytime. He is on day 5 of 20 mg of IV dexamethasone and will decrease it down tomorrow to either to 6 mg a day for another 2 to 3 days to complete a 10-day course. His CRP is back to normal. His potassium is back to normal and his white blood cell count is 13.4 down from 14.3 the other day despite the fact that he is still on high-dose dexamethasone. This plus normal CRP is leading me to think that his hyper- inflammatory stage of Covid is is starting to go away. - Problems/Diagnosis (1) Acute respiratory failure with hypoxemia Problem: Acute (2) Acute respiratory alkalosis Problem: Acute (3) Pneumonia due to COVID-19 virus Problem: Acute (4) Elevated d-dimer Problem: Acute (5) Generalized anxiety disorder with panic attacks Problem: Acute (6) IFG (impaired fasting glucose) Problem: Chronic (7) RLS (restless legs syndrome) Problem: Chronic (8) Psoriatic arthropathy Problem: Chronic (9) JEANETTE (obstructive sleep apnea) Problem: Chronic (10) Hyperlipidemia Problem: Chronic Qualifiers:
[2020-08-24] MEDS: ZINC SULFATE 220 MG CAPSULE PO SCH (10:30)
[2020-08-24] MEDS: PANTOPRAZOLE SODIUM 40 MG in NORMAL SALINE 100 ML IV SCH (15:52)
[2020-08-24] MEDS: rOPINIRole HCL 1 MG TABLET PO SCH (21:19)
[2020-08-24] MEDS: rOPINIRole HCL 0.5 MG TABLET PO SCH (21:23)
[2020-08-24] MEDS: MELATONIN 3,000 MCG TABLET PO SCH (21:24)
[2020-08-24] MEDS: TAMSULOSIN HCL 0.4 MG CAP.SR.24H PO SCH (21:25)
[2020-08-24] MEDS: LORazepam 0.5 MG TABLET PO PRN (21:27)
[2020-08-25] MEDS: IPRATROPIUM/ALBUTEROL SULFATE 120 PUFF INHALER IH SCH ×2 (06:20→19:34)
[2020-08-25] MEDS: ENOXAPARIN SODIUM 40 MG/0.4 ML SYRG SC SCH ×2 (08:51→21:21)
[2020-08-25] MEDS: METOPROLOL TARTRATE 25 MG TABLET PO SCH ×2 (08:51→21:22)
[2020-08-25] MEDS: POTASSIUM CHLORIDE 20 MEQ TABLET.SA PO SCH (08:52)
[2020-08-25] MEDS: FINASTERIDE 5 MG TABLET PO SCH (08:52)
[2020-08-25] MEDS: FOLIC ACID 1 MG TABLET PO SCH (08:52)
[2020-08-25] MEDS: ZINC SULFATE 220 MG CAPSULE PO SCH (08:52)
[2020-08-25] MEDS: VITAMIN E (DL,TOCOPHERYL ACET) 400 UNITS CAPSULE PO SCH (08:52)
[2020-08-25] MEDS: CHOLECALCIFEROL 1,000 UNIT CAPSULE PO SCH (08:52)
[2020-08-25] MEDS: CALCIUM CARBONATE 500 MG TAB.CHEW PO SCH ×2 (08:52→21:23)
[2020-08-25] MEDS: CYANOCOBALAMIN 1,000 MCG TABLET PO SCH (08:52)
[2020-08-25] MEDS: MULTIVITAMINS 1 CAP CAPSULE PO SCH (08:52)
[2020-08-25] MEDS: ASCORBIC ACID 500 MG TABLET PO SCH (08:52)
[2020-08-25] MEDS: DEXAMETHASONE SODIUM PHOSP/PF 10 MG/ML VIAL IV SCH (08:53)
[2020-08-25] MEDS ORDERED: DEXAMETHASONE SODIUM PHOSP/PF 10 MG/ML VIAL IV SCH (09:00)
--- NOTE | 2020-08-25 09:05 | PN ---
Subjective - Date and Time Seen Date: 08/25/20 Time: 09:02 Subjective Narrative: Awake alert oriented x3. Afebrile. Saturating 96-97% on 6 to 7 L of high flow nasal cannula. Objective - Review of Systems Generalized/Overall Review: Reports: Weakness. Denies: Chills, Fever EENTM: Denies: Blurred Vision Respiratory: Reports: Cough, Shortness of Breath. Denies: Wheezing Cardiac: Denies: Chest Pain, Edema, Palpitations Abdominal: Denies: Nausea, Vomiting, Abdominal Pain Genitourinary Symptoms: Denies: Urgency, Frequency Musculoskeletal Complaints: Denies: Joint Pain Neurological: Denies: Headache Skin: Denies: Lesions, Rash Misc: All systems neg except as marked - Vitals Vitals: Last Vital Signs Temp 36.5 C 08/25/20 06:55 Pulse 61 08/25/20 06:55 Resp 20 08/25/20 06:55 BP 110/72 08/25/20 06:55 Pulse Ox 95 08/25/20 06:55 - Exam Constitutional: Present: Alert, Oriented x3, Cooperative ENT Exam: Present: hearing grossly normal Neck: Present: supple. Absent: lymphadenopathy (R), lymphadenopathy (L) Respiratory: Present: decreased breath sounds, No rales, No wheezing Cardiovascular/Chest: Present: regular rate, rhythm, no JVD, no murmur Abdomen: Present: Normal bowel sounds, soft, nontender, nondistended Extremity: Present: no pedal edema, no calf tenderness Assessment/Plan Plan Narrative: Jose is HD # 9 for acute respiratory failure due to COVID pneumonia. Will do incentive q 4 H while awake and will increase frequency as tolerated. Will try him on LFNC while resting and then got to HFNC with acitivity. Continue with CPAP at night. Physical therapy is working with him. - Problems/Diagnosis (1) Acute respiratory failure with hypoxemia Problem: Acute (2) Acute respiratory alkalosis Problem: Acute (3) Pneumonia due to COVID-19 virus Problem: Acute (4) Elevated d-dimer Problem: Acute (5) Generalized anxiety disorder with panic attacks Problem: Acute (6) IFG (impaired fasting glucose) Problem: Chronic (7) RLS (restless legs syndrome) Problem: Chronic (8) Psoriatic arthropathy Problem: Chronic (9) JEANETTE (obstructive sleep apnea) Problem: Chronic (10) Hyperlipidemia Problem: Chronic Qualifiers:
[2020-08-25] MEDS: PANTOPRAZOLE SODIUM 40 MG in NORMAL SALINE 100 ML IV SCH (15:29)
[2020-08-25] MEDS: LORazepam 0.5 MG TABLET PO PRN (21:21)
[2020-08-25] MEDS: rOPINIRole HCL 0.5 MG TABLET PO SCH (21:22)
[2020-08-25] MEDS: rOPINIRole HCL 1 MG TABLET PO SCH (21:22)
[2020-08-25] MEDS: TAMSULOSIN HCL 0.4 MG CAP.SR.24H PO SCH (21:22)
[2020-08-25] MEDS: MELATONIN 3,000 MCG TABLET PO SCH (21:23)
[2020-08-26] MEDS: IPRATROPIUM/ALBUTEROL SULFATE 120 PUFF INHALER IH SCH ×2 (08:04→19:28)
--- NOTE | 2020-08-26 08:34 | PN ---
Subjective - Date and Time Seen Date: 08/26/20 Time: 08:34 Subjective Narrative: has been on RA for short periods of time at rest and 4 LNC with activity. tolerated IS q 4 hr. Objective - Review of Systems Generalized/Overall Review: Reports: Weakness. Denies: Chills, Fever EENTM: Denies: Blurred Vision Respiratory: Reports: Cough, Shortness of Breath. Denies: Wheezing Cardiac: Denies: Chest Pain, Edema, Palpitations Abdominal: Denies: Nausea, Vomiting, Abdominal Pain Genitourinary Symptoms: Denies: Urgency, Frequency Musculoskeletal Complaints: Reports: Joint Pain Neurological: Denies: Headache Skin: Denies: Lesions, Rash Misc: All systems neg except as marked - Vitals Vitals: Last Vital Signs Temp 36.3 C 08/26/20 05:49 Pulse 57 L 08/26/20 05:49 Resp 16 08/26/20 05:49 BP 122/76 08/26/20 05:49 Pulse Ox 91 L 08/26/20 08:00 - Exam Constitutional: Present: Alert, Oriented x3, Cooperative ENT Exam: Present: hearing grossly normal Neck: Present: supple. Absent: lymphadenopathy (R), lymphadenopathy (L) Respiratory: Present: decreased breath sounds, No rales, No wheezing Cardiovascular/Chest: Present: regular rate, rhythm, no JVD, no murmur Abdomen: Present: Normal bowel sounds, soft, nontender, nondistended Extremity: Present: no pedal edema, no calf tenderness Assessment/Plan Plan Narrative: Jose is hospital day 10 for acute respiratory failure due to Covid pneumonia. He is also on day 10 of IV dexamethasone. He is tolerating room air now for short periods of time at rest with 4 to 5 L of oxygen via nasal cannula during activity. I did tell him that if he continues to improve we may be able to send him home on home oxygen otherwise he may have to stay over the weekend.. I also told him that it would be beneficial for him to be on CPAP at night to increase recruitment and improve his oxygenation. He did have obstructive sleep apnea and his sleep study was showing he needed 4 cm pressure. He said he stopped doing it because he could not tolerate it at all. I asked him if the CPAP he is using here in the hospital is tolerable and he said that it is but he is not sure if he will wear a similar machine at home. We will discontinue his IV dexamethasone after today's dose. We will increase his incentive spirometry every 2 hours while awake. - Problems/Diagnosis (1) Acute respiratory failure with hypoxemia Problem: Acute (2) Acute respiratory alkalosis Problem: Acute (3) Pneumonia due to COVID-19 virus Problem: Acute (4) Elevated d-dimer Problem: Acute (5) Generalized anxiety disorder with panic attacks Problem: Acute (6) IFG (impaired fasting glucose) Problem: Chronic (7) RLS (restless legs syndrome) Problem: Chronic (8) Psoriatic arthropathy Problem: Chronic (9) JEANETTE (obstructive sleep apnea) Problem: Chronic (10) Hyperlipidemia Problem: Chronic Qualifiers:
[2020-08-26] MEDS: POTASSIUM CHLORIDE 20 MEQ TABLET.SA PO SCH (09:26)
[2020-08-26] MEDS: ASCORBIC ACID 500 MG TABLET PO SCH (09:26)
[2020-08-26] MEDS: ZINC SULFATE 220 MG CAPSULE PO SCH (09:26)
[2020-08-26] MEDS: VITAMIN E (DL,TOCOPHERYL ACET) 400 UNITS CAPSULE PO SCH (09:26)
[2020-08-26] MEDS: CYANOCOBALAMIN 1,000 MCG TABLET PO SCH (09:26)
[2020-08-26] MEDS: MULTIVITAMINS 1 CAP CAPSULE PO SCH (09:26)
[2020-08-26] MEDS: DEXAMETHASONE SODIUM PHOSP/PF 10 MG/ML VIAL IV SCH (09:26)
[2020-08-26] MEDS: CHOLECALCIFEROL 1,000 UNIT CAPSULE PO SCH (09:26)
[2020-08-26] MEDS: FINASTERIDE 5 MG TABLET PO SCH (09:27)
[2020-08-26] MEDS: METOPROLOL TARTRATE 25 MG TABLET PO SCH ×2 (09:27→21:17)
[2020-08-26] MEDS: FOLIC ACID 1 MG TABLET PO SCH (09:27)
[2020-08-26] MEDS: CALCIUM CARBONATE 500 MG TAB.CHEW PO SCH ×2 (09:27→20:48)
[2020-08-26] MEDS: ENOXAPARIN SODIUM 40 MG/0.4 ML SYRG SC SCH ×2 (09:28→20:45)
[2020-08-26] MEDS: PANTOPRAZOLE SODIUM 40 MG in NORMAL SALINE 100 ML IV SCH (16:56)
[2020-08-26] MEDS: TAMSULOSIN HCL 0.4 MG CAP.SR.24H PO SCH (20:46)
[2020-08-26] MEDS: MELATONIN 3,000 MCG TABLET PO SCH (20:47)
[2020-08-26] MEDS: rOPINIRole HCL 0.5 MG TABLET PO SCH (20:48)
[2020-08-26] MEDS: rOPINIRole HCL 1 MG TABLET PO SCH (21:17)
[2020-08-27 07:09] LABS: Hematocrit 40.7 % (42.0-52.0); Hemoglobin 13.7 gm/dL (13.5-18.0); Mean Cell Volume 97.8 fl (78-100); Mean Corpuscular Hemoglobin 32.9 pg (27-31); Mean Corpuscular Hgb Conc 33.7 g/dl (32-36); Mean Platelet Volume 9.9 fl (8-11.3); Platelet Count 252 K/mm3 (150-450); Red Blood Count 4.16 M/mm3 (4.7-6.0); Red Cell Distribution Width 13.5 % (11.5-14.0); White Blood Count 9.7 K/mm3 (4.0-10.5)
[2020-08-27 07:14] LABS: Total Cells Counted 100
[2020-08-27 07:20] LABS: Anion Gap 11.6 mmol/L (6.8-13.8); BUN/Creatinine Ratio 27.3 (9.0-21.6); Calcium * 8.2 mg/dL (7.9-10.9); Carbon Dioxide 28.7 mmol/L (24-32.6); Potassium 4.3 mmol/L (3.4-4.6)
[2020-08-27 07:36] LABS: Atypical (Reactive) Lymph 5 % (0-2); Eosinophil 3 % (0-3); Immature Granulocyte 1 (0-1); Lymphocyte 26 % (20-51); Monocyte 5 % (0-9); Neutrophil 60 % (42-75); Neutrophil # 5.8 K/mm3 (1.3-6.0); Platelet Estimate Normal (NORMAL); RBC Morphology Normal (NORMAL)
--- NOTE | 2020-08-27 09:20 | DS ---
(1) Acute respiratory failure with hypoxemia Problem: Acute (2) Acute respiratory alkalosis Problem: Acute (3) Pneumonia due to COVID-19 virus Problem: Acute (4) Elevated d-dimer Problem: Acute (5) Generalized anxiety disorder with panic attacks Problem: Acute (6) IFG (impaired fasting glucose) Problem: Chronic (7) RLS (restless legs syndrome) Problem: Chronic (8) Psoriatic arthropathy Problem: Chronic (9) JEANETTE (obstructive sleep apnea) Problem: Chronic (10) Hyperlipidemia Problem: Chronic Qualifiers: Date of Discharge:: 08/27/20 Hospital Course: Jose Terrazas is a 70-year-old white male with past medical history significant for psoriatic arthropathy, restless leg syndrome, hyperlipidemia, impaired fasting glucose, BPH who was admitted on 08/17/2020 for shortness of breath. 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 He kept himself at home and took [id number] medications for his cough and took Tylenol for his fever and chills. 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 He was seen in the walk-in clinic/respiratory clinic and was found to be hypoxic saturating in the mid 80s. He was sent then to the emergency room where the chest x-ray showed mixed interstitial and airspace opacities bilaterally. His white blood cell count was normal, neutrophils of 89%, creatinine of 1.07 with a GFR of 72, liver function test within normal limits, BNP of 586, procalcitonin of 0.07, Covid positive. His D-dimer was elevated at over 10. CT scan was down. CT angiogram was not done. He was admitted for Covid pneumonia and started on 3 L of nasal cannula saturating around 96 to 97% in the emergency room. He is currently on 1 L and saturating above 93%. He got a dose of dexamethasone and got his first therapeutic dose of Lovenox. His CTA showed no P.E. his Lovenox was changed to DVT prophylactic dose. His ferritin, CRP, LDH were way up high. His procaltinonin was normal and we did not start him on antibiotics for bacterial pneumonia. He eventually needed high flow nasal cannula oxygenation at times up to 15 L and his IV dexamethasone was increased since we do not have Tocilizumab. We also started him on some CPAP at night. Physical therapy worked with him. We started him on incentive spirometry. In the end he was tolerating room air needing oxygen via nasal cannula with activity. He is stable now to be discharge with home oxygen on as needed basis. He will also be prescribed pulse oximeter. We will do a follow-up chest x-ray in 4 to 6 weeks. Procedures Performed: none Results and Findings: Lab Pending Results 08/17/20 10:40: pCO2 30.0 L, pO2 63.5 L, HCO3 22.9, Total CO2 23.8, Base Excess 0.7, ABG pH 7.50 H, ABG O2 Sat (Measured) 94.3 08/17/20 10:45: WBC 7.6, RBC 4.06 L, Hgb 13.6, Hct 40.0 L, MCV 98.5, MCH 33.5 H, MCHC 34.0, RDW 12.9, Plt Count 209, MPV 10.2, Immature Gran % (Auto) 0.90 H, Immature Gran # (Auto) 0.07 H, Neutrophils % 89.1 H, Lymphocytes % 4.5 L, Monocytes % 5.1, Eosinophils % 0.3, Basophils % 0.1, Nucleated RBC % 0.0, Neutrophils # 6.8 H, Lymphocytes # 0.34 L, Monocytes # 0.4, Eosinophils # 0.0, Absolute Basophils 0.0 08/17/20 10:45: Sodium 143 H, Plasma Sodium 143 H, Potassium 4.2, Chloride 104, Carbon Dioxide 26.5, Anion Gap 16.7 H, BUN 26 H, Creatinine 1.07, Est GFR (Non- Af Amer) 72, BUN/Creatinine Ratio 24.3 H, Random Glucose 107, Calcium 8.5, Calcium Adj for Albumin 9.4, Total Bilirubin 0.7, AST 34, ALT 45, Alkaline Phosphatase 82, Troponin I Less than 0.017, B-Natriuretic Peptide 586 H, Total Protein 7.5, Albumin 2.5 L 08/17/20 10:45: D-Dimer Greater than 10.00 H 08/17/20 10:45: Procalcitonin 0.07 08/17/20 10:45: C-Reactive Prot, Quant 17.0 H 08/17/20 10:45: ESR 74 H 08/17/20 10:45: Ferritin 1388 H, Lactate Dehydrogenase 572 H 08/17/20 11:28: SARS-CoV-2 (PCR) Detected H 08/20/20 06:45: WBC 11.4 H D, RBC 4.26 L, Hgb 13.9, Hct 41.9 L, MCV 98.4, MCH 32.6 H, MCHC 33.2, RDW 13.2, Plt Count 251, MPV 10.3, Immature Gran % (Auto) 2.40 H, Immature Gran # (Auto) 0.27 H, Neutrophils % 81.4 H, Lymphocytes % 9.0 L, Monocytes % 6.8, Eosinophils % 0.1, Basophils % 0.3, Nucleated RBC % 0.0, Neutrophils # 9.3 H, Lymphocytes # 1.03 L, Monocytes # 0.8, Eosinophils # 0.0, Absolute Basophils 0.0 08/20/20 06:45: Sodium 140, Plasma Sodium 140, Potassium 4.8 H, Chloride 106, Carbon Dioxide 27.9, Anion Gap 10.9, BUN 32 H, Creatinine 0.96, Est GFR (Non-Af Amer) 82, BUN/Creatinine Ratio 33.3 H, Random Glucose 91, Calcium 8.5, Ferritin 776 H, Lactate Dehydrogenase 320 H, C-Reactive Prot, Quant 2.6 H 08/22/20 07:24: pCO2 38.9, pO2 52.9 L, HCO3 27.5, Total CO2 28.7 H, Base Excess 3.7 H, ABG pH 7.47 H, ABG O2 Sat (Measured) 89.4 L 08/22/20 07:45: WBC 14.3 H D, RBC 4.69 L, Hgb 15.1, Hct 46.2, MCV 98.5, MCH 32.2 H, MCHC 32.7, RDW 13.2, Plt Count 338, MPV 10.1, Neutrophils % (Manual) 81 H, Lymphocytes % (Manual) 12 L, Monocytes % (Manual) 7, Neutrophils # (Manual) 11.6 H, Lymphocytes # (Manual) 1.7, Monocytes # (Manual) 1.0, Platelet Estimate Normal, RBC Morphology Normal 08/22/20 07:45: Sodium 139, Plasma Sodium 139, Potassium 5.0 H, Chloride 102, Carbon Dioxide 30.6, Anion Gap 11.4, BUN 35 H, Creatinine 0.96, Est GFR (Non-Af Amer) 82, BUN/Creatinine Ratio 36.5 H, Random Glucose 95, Calcium 8.9, Ferritin 644 H, Lactate Dehydrogenase 344 H, C-Reactive Prot, Quant 1.1 H 08/22/20 07:45: Procalcitonin Less than 0.05 L 08/23/20 22:18: pCO2 39.9, pO2 91.5, HCO3 27.7, Total CO2 29.0 H, Base Excess 3.7 H, ABG pH 7.46 H, ABG O2 Sat (Measured) 97.4 08/24/20 06:35: WBC 13.4 H, RBC 4.45 L, Hgb 14.5, Hct 44.1, MCV 99.1, MCH 32.6 H, MCHC 32.9, RDW 13.2, Plt Count 328, MPV 9.8, Immature Gran % (Auto) 4.30 H, Immature Gran # (Auto) 0.58 H, Neutrophils % 77.6 H, Lymphocytes % 9.1 L, Monocytes % 8.1, Eosinophils % 0.2, Basophils % 0.7, Nucleated RBC % 0.0, Neutrophils # 10.4 H, Lymphocytes # 1.22 L, Monocytes # 1.1 H, Eosinophils # 0.0, Absolute Basophils 0.1 08/24/20 06:35: Sodium 133, Plasma Sodium 133, Potassium 4.4, Chloride 100, Carbon Dioxide 26.2, Anion Gap 11.2, BUN 35 H, Creatinine 0.94, Est GFR (Non-Af Amer) 84, BUN/Creatinine Ratio 37.2 H, Random Glucose 91, Calcium 8.5, C- Reactive Prot, Quant 0.7 08/27/20 06:30: WBC 9.7 D, RBC 4.16 L, Hgb 13.7, Hct 40.7 L, MCV 97.8, MCH 32.9 H, MCHC 33.7, RDW 13.5, Plt Count 252, MPV 9.9, Neutrophils % (Manual) 60, Lymphocytes % (Manual) 26, Monocytes % (Manual) 5, Eosinophils % (Manual) 3, Immature Granulocytes 1, Neutrophils # (Manual) 5.8, Lymphocytes # (Manual) 2.5, Monocytes # (Manual) 0.5, Eosinophils # (Manual) 0.3, Atypic/Reactive Lymphs 5 H, Platelet Estimate Normal, RBC Morphology Normal 08/27/20 06:30: Sodium 140, Plasma Sodium 140, Potassium 4.3, Chloride 104, Carbon Dioxide 28.7, Anion Gap 11.6, BUN 27 H, Creatinine 0.99, Est GFR (Non-Af Amer) 79, BUN/Creatinine Ratio 27.3 H, Random Glucose 84, Calcium 8.2 Discharge Location: Home Disposition: Home self-care Condition: Stable Discharge Activity: Activity as tolerated Discharge Diet: General/regular food Referrals: Honey Hoang MD [Primary Care Provider] - Problem Oriented Discharge Instructions to Patient/Family: COVID-19, Weakness, [id number], Home Oxygen Use, Adult Prescriptions (Any new or edited meds): LORazepam [Ativan] 0.5 mg PO TID PRN #60 tab PRN Reason: Anxiety Transmission Status: Received by [place] Ipratropium/Albuterol Sulfate [Combivent Respimat 20-100 mcg] 1 puff IH Q12H #7 inhaler Transmission Status: Pending to [place], [place] Metoprolol Tartrate [Lopressor] 12.5 mg PO BID #180 tab Transmission Status: Pending to [place], [place] Melatonin 6,000 mcg PO HS #30 tab Transmission Status: Pending to [place] Zinc Sulfate 220 mg PO DAILY #30 cap Transmission Status: Pending to [place], [place] Complete Home Medications List: Complete Home Medication List: methotrexate sodium 2.5 mg tablet 20 mg PO Q7D tab 10/11/17 Ascorbic Acid [Vitamin C] 500 mg PO DAILY 12/28/17 Cholecalciferol (Vitamin D3) [Vitamin D3] 1,000 unit PO DAILY 12/28/17 Cyanocobalamin (Vitamin B-12) [Vitamin B-12] 1 tab PO DAILY 12/28/17 Folic Acid 2 mg PO DAILY 12/28/17 Multivitamin [One Daily Multivitamin] 1 ea PO DAILY 12/28/17 Weskan-3S/Dha/Epa/Fish Oil [Fish Oil 1,200 mg Softgel] 1 ea PO DAILY 12/28/17 Tamsulosin HCl [Flomax] 0.4 mg PO HS 12/28/17 Vitamin E 400 unit PO DAILY 12/28/17 finasteride 5 mg tablet 5 mg PO DAILY 11/18/19 infliximab 100 mg intravenous solution IV Q8W ea 11/18/19 potassium chloride 20 mEq tablet,extended release(part/cryst) 20 meq PO DAILY 11/18/19 ropinirole 0.5 mg tablet 0.5 mg PO HS #90 tab 06/07/20 ropinirole 1 mg tablet See Rx Instructions .ROUTE .COMPLEX #90 unknown measurement unit code: not specified 06/07/20 Calcium Carbonate [Tums] 500 mg PO BID 08/17/20 Ipratropium/Albuterol Sulfate [Combivent Respimat 20-100 mcg] 1 puff IH Q12H #7 inhaler 08/27/20 LORazepam [Ativan] 0.5 mg PO TID PRN #60 tab 08/27/20 Melatonin 6,000 mcg PO HS #30 tab 08/27/20 Metoprolol Tartrate [Lopressor] 12.5 mg PO BID #180 tab 08/27/20 Zinc Sulfate 220 mg PO DAILY #30 cap 08/27/20 Forms: Patient Portal Registration
[2020-08-27] MEDS: IPRATROPIUM/ALBUTEROL SULFATE 120 PUFF INHALER IH SCH (10:00)
[2020-08-27] MEDS: ZINC SULFATE 220 MG CAPSULE PO SCH (10:01)
[2020-08-27] MEDS: ENOXAPARIN SODIUM 40 MG/0.4 ML SYRG SC SCH (10:01)
[2020-08-27] MEDS: METOPROLOL TARTRATE 25 MG TABLET PO SCH (10:01)
[2020-08-27] MEDS: FOLIC ACID 1 MG TABLET PO SCH (10:01)
[2020-08-27] MEDS: CALCIUM CARBONATE 500 MG TAB.CHEW PO SCH (10:01)
[2020-08-27] MEDS: VITAMIN E (DL,TOCOPHERYL ACET) 400 UNITS CAPSULE PO SCH (10:01)
[2020-08-27] MEDS: FINASTERIDE 5 MG TABLET PO SCH (10:02)
[2020-08-27] MEDS: CYANOCOBALAMIN 1,000 MCG TABLET PO SCH (10:02)
[2020-08-27] MEDS: MULTIVITAMINS 1 CAP CAPSULE PO SCH (10:02)
[2020-08-27] MEDS: POTASSIUM CHLORIDE 20 MEQ TABLET.SA PO SCH (10:02)
[2020-08-27] MEDS: CHOLECALCIFEROL 1,000 UNIT CAPSULE PO SCH (10:02)
[2020-08-27] MEDS: ASCORBIC ACID 500 MG TABLET PO SCH (10:02)
[2020-08-27] MEDS: DEXAMETHASONE SODIUM PHOSP/PF 10 MG/ML VIAL IV SCH (10:02)
[2020-08-27] MEDS: LORazepam 0.5 MG TABLET PO PRN (10:04)
[2020-08-27 14:07] VITALS: BP 125/79
== END 2020-08-27 13:10 | disposition home or self-care (01) | DRG 177 ==
LOC: ER 10:17 → SCU 13:29
PROVIDERS: ADMIT Internal Medicine; ATTEND Internal Medicine
DX: E87.3 Alkalosis; G25.81 Restless legs syndrome; J12.82 Pneumonia due to coronavirus disease 2019; U07.1 COVID-19; L40.50 Arthropathic psoriasis, unspecified; F41.1 Generalized anxiety disorder; F41.0 Panic disorder [episodic paroxysmal anxiety]; E78.5 Hyperlipidemia, unspecified; G47.33 Obstructive sleep apnea (adult) (pediatric); R73.01 Impaired fasting glucose; J96.01 Acute respiratory failure with hypoxia